=== PATIENT | male | born 1940 | race Hispanic/Latino ===

== ENCOUNTER 2018-02-08 13:37 | Outpatient (CLI) | payer MEDICARE, MEDICAID ==
--- NOTE | 2018-02-08 14:14 | RAD ---
RADIOGRAPH CHEST 2 VIEWS: 02/08/18 HISTORY: 77-year-old male with dyspnea. FINDINGS: There is no air space density, pulmonary edema, pleural effusion, pneumothorax, or cardiomegaly. IMPRESSION: No acute cardiopulmonary findings. jn [] POS: [facility]
== END 2018-02-08 13:38 | disposition home or self-care (01) ==
LOC: RAD 13:37
PROVIDERS: ATTEND Internal Medicine Pulmonary Disease
DX: R06.00 Dyspnea, unspecified (principal)
CPT/HCPCS: 71046

== ENCOUNTER 2018-08-05 20:42 | Inpatient (IN) | payer MEDICARE, MEDICAID ==
--- NOTE | 2018-08-05 21:29 | RAD ---
RADIOGRAPH CHEST 1 VIEW: DATE: 08/05/2018 TIME: 9:10 PM HISTORY: 77-year-old male with cough COMPARISON: 02/08/2018 FINDINGS: Lung volumes are lower on the current study compared to previous, hypoinflated. There is effacement o f the left lateral costophrenic angle. The rest of the lungs are clear. No pulmonary edema or pneumothorax. IMPRESSION: Nonspecific small density at left lateral lung base. Probably subsegmental atelectasis. Less likely t o be pneumonia. However, follow-up with PA and lateral views recommended in a few days.
[2018-08-05 22:08] LABS: #Eosinphils 0.3 thou/uL (0.0-0.7); #Monocytes 0.9 thou/uL (0.11-0.59); #Neutrophils 4.1 thou/uL (1.40-6.50); %Basophils 0.4 % (0.0-1.0); %Eosinophils 3.8 % (0.0-10.0); %Lymphocytes 36.1 % (21.0-51.0); %Monocytes 10.8 % (0.0-10.0); %Neutrophils 48.9 % (42.0-75.0); Mean Corpuscular HGB CONC 32.8 g/dL (32.0-36.0); Mean Corpuscular Hemoglobin 30.4 pg (27.0-31.0); Mean Corpuscular Volume 92.7 fL (78.0-98.0); Mean Platelet Volume 8.1 fL (7.4-10.4); Platelet Count 245 thou/uL (130-400); Red Blood Cell (RBC) Count 3.93 mill/uL (4.70-6.10); White Blood Cell (WBC) Count 8.4 thou/uL (4.8-10.8)
[2018-08-05] MEDS ORDERED: methylPREDNISolone Sod Succ/PF 125 MG/2 ML VIAL ONE (22:32)
[2018-08-05 22:42] LABS: ALT (SGPT) 13 U/L (8-55); AST (SGOT) 20 U/L (5-34); Albumin 3.9 g/dL (3.4-4.8); Alkaline Phosphatase 89 U/L (40-150); Anion Gap 17 mmol/L (10-20); BUN (Urea Nitrogen) 31 mg/dL (8.4-25.7); Bilirubin, Total 0.3 mg/dL (0.2-1.2); Calc. Creatinine Clearance 0 mL/min (70-130); Calcium 8.9 mg/dL (7.8-10.44); Carbon Dioxide 24 mmol/L (23-31); Chloride 98 mmol/L (98-107); Estimated GFR-MDRD 29; Globulin 3.3 g/dL (2.4-3.5); Glucose 255 mg/dL (83-110); Potassium 4.3 mmol/L (3.5-5.1); Protein, Total 7.2 g/dL (5.8-8.1); Sodium 135 mmol/L (136-145)
[2018-08-05] MEDS ORDERED: cefTRIAXone\\ROCEPHIN 2 GM VIAL ONE (23:16)
[2018-08-05] MEDS ORDERED: Azithromycin 500 MG VIAL ONE (23:47)
[2018-08-06 01:18] VITALS: BMI 34.2
[2018-08-06 02:38] LABS: Lactic Acid 2.5 mmol/L (0.5-2.2)
[2018-08-06] MEDS ORDERED: Prevnar 13-Val Conj/PF 0.5 ML SYRINGE IM ONE (09:00)
[2018-08-06] MEDS ORDERED: Dextrose 50% Abboject 50 ML SYRINGE SLOW IVP PRN (10:16)
[2018-08-06] MEDS ORDERED: HumaLOG 300 UNITS/3 ML VIAL SC PRN (10:16)
[2018-08-06] MEDS ORDERED: Dextrose 5% in Water 1,000 ML IV PRN (10:16)
[2018-08-06] MEDS ORDERED: Guaifenesin DM 100-10/5 ML UDCUP PO PRN (10:21)
[2018-08-06] MEDS ORDERED: Furosemide 20 MG TAB PO SCH (10:30)
[2018-08-06] MEDS ORDERED: Potassium Chloride 8 MEQ TAB PO SCH (10:30)
[2018-08-06] MEDS ORDERED: Lisinopril 2.5 MG TAB PO SCH (10:30)
[2018-08-06] MEDS: methylPREDNISolone Sod Succ 40 MG VIAL IVP SCH ×2 (11:12→17:31)
[2018-08-06] MEDS ORDERED: Citalopram 10 MG TAB PO SCH (11:30)
[2018-08-06] MEDS ORDERED: Hydrochlorothiazide 25 MG TAB PO SCH (11:30)
--- NOTE | 2018-08-06 13:46 | CT ---
CT CHEST WITHOUT CONTRAST: Multiple axial tomograms were obtained through the chest without IV enhancement. INDICATION: Cough and congestion. COMPARISON: Correlation made to portable chest 08/05/2018 which showed nonspecific density in the left peripheral l shakir base obscuring the left peripheral lung base obscuring the CP angle. FINDINGS: Lung nam are well aerated. No focal infiltrate or consolidation. There is mild pleural thickenin g seen posteriorly in both lower lung nam. There is interstitial thickening and stranding in both lung bases. Some linear opacity in the region of the lingula is seen peripherally extending to the pleural surface suggesting chronic stranding and/or atelectasis. This would account for the density seen on recent chest film. Findings do not suggest inflammatory infiltrate. Review of the mediastinum showed nonspecific mediastinal lymph nodes. A paratracheal lymph node show s increased density which may represent early calcification. It measures 1.5 cm. Images through the upper abdomen unremarkable. Osseous structures unremarkable. IMPRESSION: There are chronic lung parenchymal and pleural changes as discussed above. No evidence of inflammato ry infiltrate. POS: [facility]
[2018-08-06] MEDS: Pregabalin 50 MG CAP PO SCH ×3 (13:57→21:24)
[2018-08-06] MEDS ORDERED: HumaLOG 300 UNITS/3 ML VIAL SC SCH (15:45)
[2018-08-06] MEDS ORDERED: Insulin Glargine 30 UNITS in Pre-Filled Syringe 1 EACH SC SCH (16:00)
[2018-08-06] MEDS ORDERED: Insulin Regular 300 UNITS/3 ML VIAL SC PRN (21:15)
[2018-08-06] MEDS: Insulin Glargine 55 UNITS in Pre-Filled Syringe 1 EACH SC SCH (21:23)
[2018-08-06] MEDS: HumaLOG 300 UNITS/3 ML VIAL SC PRN (21:23)
[2018-08-06] MEDS: cefTRIAXone\\ROCEPHIN 1 GM in Sodium Chloride 0.9% 100 ML IVPB SCH (21:56)
[2018-08-07] MEDS: methylPREDNISolone Sod Succ 40 MG VIAL IVP SCH ×4 (00:37→17:35)
--- NOTE | 2018-08-07 01:24 | HP ---
CHIEF COMPLAINT: Cough. HISTORY OF PRESENT ILLNESS: This patient is a 77-year-old male who presented via the emergency department complaining of cough. The patient indicated he had a history of asthma and has been coughing for about 8 days, it got worse in the last 4-5 days. Cough is productive of sputum, but the patient is blind and incapable of actually seeing the character of the sputum. He becomes very short of breath with his coughing episodes and reports that he has had several episodes of very brief syncope related to the cough. The episode was more severe on this occasion, so he presented to the emergency department. The patient himself reports that these episodes only last 20-30 seconds before he regains consciousness fully. REVIEW OF SYSTEMS: He denies any significant fever, headache, or vomiting. He does have generalized weakness, some orthopnea, some mild peripheral edema, generalized fatigue. He also admits to some dry mouth, rhinorrhea, dyspnea, decreased appetite, and 10-pound weight loss over a 3-month period. All other systems reviewed. All pertinent positives and negatives noted in the history of present illness. 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 He has type 2 diabetes, hypertension. PAST SURGICAL HISTORY: 1. 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 2. Retinal detachment repair. FAMILY HISTORY: Diabetes, cancer. SOCIAL HISTORY: The patient lives in [place]. Quit smoking 40-50 years ago. Denies alcohol or drugs. He walks with a cane. He is a full code and his is his surrogate decision maker. ALLERGIES: NONE. MEDICATIONS: 1. Lyrica 50 mg p.o. t.i.d. 2. Flovent 110 mcg inhaled daily. 3. Ventolin 90 mcg inhaled p.r.n. 4. Lasix 20 mg daily. 5. Lisinopril 2.5 mg daily. 6. Omeprazole 40 mg daily. 7. Onglyza 5 mg daily. 8. Celexa 10 mg daily. 9. Potassium 8 mEq daily. 10. Hydrochlorothiazide 12.5 mg p.o. p.r.n. swelling. 11. Vitamin D 1000 units p.o. daily. PHYSICAL EXAMINATION: VITAL SIGNS: Temperature is 98, pulse 102, respirations 24, O2 saturation 100% on room air, BP 103/53, repeat was 143/79. GENERAL APPEARANCE: Age-appropriate male, he is in no distress. He has some audible hoarseness of voice. HEENT: Pupils are not significantly reactive. He has no OP lesions. NECK: Supple. Symmetric. HEART: Regular rate and rhythm. No murmurs, gallops, or rubs. LUNGS: Have mild bibasilar rales, but no wheezes. ABDOMEN: Soft, nontender, and nondistended. Positive bowel sounds. No masses. No organomegaly. EXTREMITIES: No significant edema. LABORATORY DATA: White count 8.4, hemoglobin 12.0. Sodium 135, potassium 4.3, chloride 98, CO2 is 24, BUN 31, creatinine 2.2. GFR is 29. LFTs normal. Troponin less than 0.01. BNP 28. Chest x-ray, some nonspecific small density in the left lateral lung base, likely segmental atelectasis, less likely pneumonia. IMPRESSION AND PLAN: 1. Syncope. Syncope appears to be related to the patient's cough which is certainly a known phenomenon. The patient will be maintained on the telemetry monitoring and we will endeavor to suppress the cough. 2. Bronchitis. The patient reports a history of asthma, is on appropriate medications, appears to have a productive cough on top of that consistent with bronchitis. We will obtain CT of the chest to evaluate the basilar rales and the modest abnormality noted on the chest x-ray. Continue antibiotics for now. 3. Chronic kidney disease. The patient's creatinine and GFR appear to be fairly consistent with his baseline. 4. Lactic acidosis. The patient has mild lactic acidosis, may be related to the potential underlying infection. Otherwise, a normal white count. Again, we will obtain a CT scan to help delineate this. 5. Diabetes mellitus with poor control of blood sugars. We will provide sliding scale and Accu-Cheks, and continue to monitor. Job ID: [id number]
[2018-08-07] MEDS: HumaLOG 300 UNITS/3 ML VIAL SC PRN ×4 (06:27→21:41)
[2018-08-07] MEDS ORDERED: Citalopram 10 MG TAB PO SCH (09:00)
[2018-08-07] MEDS ORDERED: Non-Formulary Item 1 EACH (Saxagliptin Hcl [Onglyza] 5 MG) PO SCH (09:00)
[2018-08-07] MEDS ORDERED: Hydrochlorothiazide 25 MG TAB PO SCH (09:00)
[2018-08-07] MEDS ORDERED: Non-Formulary Item 1 EACH (Omeprazole [Omeprazole] 40 MG) PO SCH (09:00)
--- NOTE | 2018-08-07 09:05 | ULT ---
Carotid arterial Doppler ultrasound: 08/07/2018 COMPARISON: None HISTORY: Syncopal episodes TECHNIQUE: Multiplanar grayscale sonographic imaging of the arterial structures of the neck obtained with color flow/spectral analysis FINDINGS: Mild shadowing plaque noted in the proximal and distal right common carotid artery. Antegrade blood flow and normal arterial waveforms are noted within the right carotid and vertebral s ystem. Mild calcified plaque noted in the mid left common carotid artery. There is minimal plaque within the proximal left common carotid artery. Antegrade blood flow and normal arterial waveforms are noted within the carotid and vertebral system on the left. Peak systolic velocity (centimeters per second) within the common carotid artery is 103 on the right and 96 on the left. Peak systolic velocity (centimeters per second) of the internal carotid artery is 86 on the right and 106 on the left. ICA/CCA ratio is 0.8 on the right and 1.4 on the left. IMPRESSION: No hemodynamically significant stenosis within the common carotid artery or internal leon tid artery on either side on the basis of sonographic velocity criteria.
[2018-08-07] MEDS: Lisinopril 5 MG TAB PO SCH (09:21)
[2018-08-07] MEDS: Citalopram 10 MG TAB PO SCH (09:21)
[2018-08-07] MEDS: Pregabalin 50 MG CAP PO SCH ×4 (09:23→21:43)
[2018-08-07] MEDS: Potassium Chloride 8 MEQ TAB PO SCH (09:24)
[2018-08-07] MEDS: Hydrochlorothiazide 25 MG TAB PO SCH (09:24)
[2018-08-07] MEDS: Furosemide 20 MG TAB PO SCH (09:24)
[2018-08-07] MEDS: Alogliptin 25 MG TAB PO SCH (09:25)
[2018-08-07] MEDS: Insulin Glargine 55 UNITS in Pre-Filled Syringe 1 EACH SC SCH (21:42)
--- NOTE | 2018-08-07 21:54 | PDOC.PN ---
- Subjective Encounter Start Date: 08/07/18 Encounter Start Time: 13:00 Feeling some better. Still has some cough. Feels like the nebs have been very helpful for him. - Objective Vital Signs & Weight: Vital Signs (12 hours) Temp Pulse Resp BP Pulse Ox 08/07/18 19:31 110 H 12 08/07/18 18:07 98.3 F 111 H 18 135/70 97 08/07/18 15:47 97.4 F L 108 H 18 108/59 L 93 L 08/07/18 15:07 98 16 08/07/18 11:13 97.3 F L 111 H 19 129/62 94 L 08/07/18 10:43 100 16 Weight Weight 187 lb 3.2 oz I&O: 08/06/18 08/07/18 08/08/18 06:59 06:59 06:59 Intake Total 820 750 Output Total 350 Balance 470 750 Result Diagrams: 08/05/18 21:58 08/05/18 21:58 Additional Labs: Accuchecks 08/07/18 08/07/18 08/07/18 20:43 16:48 10:35 POC Glucose 421 H 384 H 244 H 08/07/18 08/07/18 08/06/18 05:46 03:21 22:33 POC Glucose 249 H 248 H 395 H Phys Exam - Physical Examination Constitutional: NAD Respiratory: no wheezing, no rhonchi, clear to auscultation bilateral Scattered rales. Cardiovascular: RRR, no significant murmur Gastrointestinal: soft, non-tender, no distention, positive bowel sounds Musculoskeletal: no edema, pulses present Neurological: non-focal Psychiatric: normal affect Dx/Plan (1) Cough syncope Code(s): R05 - COUGH Status: Acute (2) Bronchitis Code(s): J40 - BRONCHITIS, NOT SPECIFIED ACUTE OR CHRONIC Status: Acute (3) Diabetes mellitus type 2 in nonobese Code(s): E11.9 - TYPE 2 DIABETES MELLITUS WITHOUT COMPLICATIONS Status: Acute - Plan * Doing better. * Awaiting the echo results given the syncope. * Lungs have scattered rales, but CT shows some chronic findings. No acute infiltrate. * Steroids causing some hyperglycemia. Continue insulin SS.
[2018-08-07] MEDS: cefTRIAXone\\ROCEPHIN 1 GM in Sodium Chloride 0.9% 100 ML IVPB SCH (21:58)
[2018-08-08] MEDS ORDERED: Sodium Chloride 0.9% 500 ML IV SCH ×2 (00:15→10:15)
[2018-08-08] MEDS: HumaLOG 300 UNITS/3 ML VIAL SC PRN (06:05)
[2018-08-08] MEDS: Alogliptin 25 MG TAB PO SCH (08:38)
[2018-08-08] MEDS: Pregabalin 50 MG CAP PO SCH ×2 (08:38→13:14)
[2018-08-08] MEDS: Citalopram 10 MG TAB PO SCH (08:38)
[2018-08-08] MEDS: Potassium Chloride 8 MEQ TAB PO SCH (08:39)
[2018-08-08] MEDS: Lisinopril 5 MG TAB PO SCH (10:46)
[2018-08-08] MEDS: Hydrochlorothiazide 25 MG TAB PO SCH (10:46)
[2018-08-08] MEDS: Furosemide 20 MG TAB PO SCH (10:46)
[2018-08-08 10:52] LABS: #Monocytes 1.2 thou/uL (0.11-0.59); #Neutrophils 14.2 thou/uL (1.40-6.50); %Basophils 0.1 % (0.0-1.0); %Lymphocytes 5.8 % (21.0-51.0); %Monocytes 7.4 % (0.0-10.0); %Neutrophils 86.7 % (42.0-75.0); Mean Corpuscular HGB CONC 34.5 g/dL (32.0-36.0); Mean Corpuscular Hemoglobin 31.3 pg (27.0-31.0); Mean Corpuscular Volume 90.7 fL (78.0-98.0); Mean Platelet Volume 7.8 fL (7.4-10.4); Platelet Count 244 thou/uL (130-400); RBC Distribution Width 11.9 % (11.5-14.5); Red Blood Cell (RBC) Count 3.52 mill/uL (4.70-6.10); White Blood Cell (WBC) Count 16.4 thou/uL (4.8-10.8)
[2018-08-08 11:02] LABS: Hemoglobin A1c 10.2 % (4.0-6.0)
[2018-08-08 11:19] LABS: Anion Gap 20 mmol/L (10-20); BUN (Urea Nitrogen) 44 mg/dL (8.4-25.7); Calc. Creatinine Clearance 39 mL/min (70-130); Calcium 8.8 mg/dL (7.8-10.44); Carbon Dioxide 22 mmol/L (23-31); Chloride 95 mmol/L (98-107); Estimated GFR-MDRD 32; Glucose 186 mg/dL (83-110); Potassium 3.7 mmol/L (3.5-5.1); Sodium 133 mmol/L (136-145)
[2018-08-08 15:57] VITALS: TEMP 97.4
[2018-08-08 17:17] VITALS: BP 129/65
--- NOTE | 2018-08-09 14:49 | DIS ---
DATE OF ADMISSION: 08/07/2018 DATE OF DISCHARGE: 08/08/2018 DISCHARGE DIAGNOSES: 1. Cough related syncope. 2. Bronchitis. 3. Diabetes mellitus. 4. Orthostatic hypotension. 5. 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 HISTORY OF PRESENT ILLNESS: The patient is a 77-year-old male, who presented to the hospital reporting fairly severe cough which had subsequently resulted with several episodes of brief syncope. Initial workup failed to show any significant infiltrate. Chest x-ray shows small density at the left lung base. HOSPITAL COURSE: The patient was admitted. He had carotid Dopplers, which failed to show any significant atherosclerotic disease. Echocardiogram which only revealed some evidence of diastolic dysfunction with preserved ejection fraction at 60% to 65%. He had moderate to severely dilated left atrium. The patient remained on telemetry, had no significant ectopy or arrhythmias noted. A CT scan of the chest revealed some chronic scarring, which describes chronic lung parenchyma and pleural changes without evidence of any acute infiltrate. Therapeutically, the patient was started on nebulizer treatments and antibiotics, as well as steroids. His breathing improved substantially. His cough improved substantially with further episodes of cough related syncope. The patient's blood sugar was running substantially high. I was unclear what his baseline numbers were in talking to his family members and it sounds like they were running pretty high all the time. We did in fact check a hemoglobin A1c, which was 10.2. The patient's insulin was continually adjusted in order to try to achieve better glucose control and that was ultimately accomplished. The patient was felt to be stable for discharge, however in working up his syncope due to orthostatic vitals, he did appear to have some orthostasis. He was given a bolus of IV fluids and was feeling quite well. However, repeat orthostatic vital signs continued to show some evidence of orthostasis. However, when reconfirming the appropriate technique for checking the orthostatic vital signs, it appeared that he did not in fact have the orthostasis at that time and was stable for discharge. PHYSICAL EXAMINATION: VITAL SIGNS: On the day of discharge, his temperature was 97.4. Pulse was 106 to 113, thought to be related to nebulizer treatments. His respirations were 16 to 20, O2 saturation 97% on room air, BP was 121/65. GENERAL: The patient was awake and alert. He does have chronic blindness. HEART: Borderline tachy, but regular. No murmurs. LUNGS: Revealed minimal scattered rales throughout, which was unchanged. ABDOMEN: Benign. EXTREMITIES: With no edema. DISPOSITION: The patient is discharged to home. ACTIVITY: As tolerated. DIET: He will remain on a diabetic diet. DISCHARGE MEDICATIONS: He will have a prescription for DuoNeb 3 mL q.4 hours p.r.n. He will have a prescription for a nebulizer machine. He will be on, 1. Augmentin 875 mg p.o. b.i.d. 2. He will continue citalopram 10 mg daily. 3. HCTZ 12.5 daily. 4. Lisinopril 2.5 daily. 5. Lantus 55 units subcu as directed. 6. Saxagliptin 5 mg daily. 7. Lasix 20 mg daily. 8. Potassium 8 mEq daily. 9. Pregabalin 50 mg q.i.d. 10. Omeprazole 40 mg daily. FOLLOWUP: He will follow up with his primary care provider and return to the hospital should he have any problems prior to that time. TIME SPENT: Total time in discharge activities including [id number] time with the patient was 40 minutes. Job ID: [id number]
== END 2018-08-08 17:50 | disposition home or self-care (01) | DRG 202 ==
LOC: ERS 20:42 → ERHOLD 23:01 → 2SW 08-06 01:11 → OBSVTOIN 08-07 21:48
PROVIDERS: ADMIT Hospitalist; ATTEND Hospitalist
DX: J20.9 Acute bronchitis, unspecified (principal); E87.2 Acidosis; J45.909 Unspecified asthma, uncomplicated; H54.7 Unspecified visual loss; E11.22 Type 2 diabetes mellitus with diabetic chronic kidney disease; I12.9 Hypertensive chronic kidney disease with stage 1 through stage 4 chronic kidney disease, or unspecified chronic kidney disease; N18.9 Chronic kidney disease, unspecified; R73.9 Hyperglycemia, unspecified; T38.0X5A Adverse effect of glucocorticoids and synthetic analogues, initial encounter; Z89.021 Acquired absence of right finger(s); Z79.84 Long term (current) use of oral hypoglycemic drugs; Z87.891 Personal history of nicotine dependence; Z79.899 Other long term (current) drug therapy
CPT/HCPCS: 36415; 36416; 71045; 71250; 80048; 80053; 83036; 83605; 83880; 84484; 85025; 87040; 90471; 90670; 93005; 93306; 93880; 94640; 94760; 96365; 96367; 96375; G0009; J0456; J0696; J1825; J2920; J2930; J3490; J7620

== ENCOUNTER 2021-09-08 18:56 | Inpatient (IN) | payer MEDICARE, MEDICAID ==
[2021-09-08] MEDS ORDERED: Senokot S 8.6-50 MG TAB PO PRN (22:05)
[2021-09-08] MEDS ORDERED: Ondansetron PF 4 MG/2 ML Vial IVP PRN (22:05)
[2021-09-08] MEDS ORDERED: hydrOXYzine 25 MG TAB PO PRN (22:25)
[2021-09-08] MEDS ORDERED: Dextrose 5% in Water 1,000 ML IV PRN (22:26)
[2021-09-08] MEDS ORDERED: Dextrose 50% Abboject 50 ML SYRINGE SLOW IVP PRN (22:26)
[2021-09-08] MEDS ORDERED: Atorvastatin Calcium 20 MG TAB PO SCH (23:00)
[2021-09-08] MEDS ORDERED: Pantoprazole 40 MG VIAL IVP SCH (23:00)
[2021-09-08] MEDS ORDERED: Heparin 5,000 UNITS/ML VIAL SC SCH (23:00)
[2021-09-08 23:19] LABS: Troponin I 0.098 ng/mL (< 0.028)
[2021-09-08] MEDS: Sodium Chloride 0.9% 1,000 ML IV SCH (23:24)
[2021-09-08] MEDS: Piperacillin/Tazobactam 3.375 GM in Sodium Chloride 0.9% 100 ML IVPB SCH (23:25)
[2021-09-08] MEDS: HumaLOG 300 UNITS/3 ML VIAL SC PRN (23:28)
[2021-09-08] MEDS: Melatonin 3 MG TAB PO PRN (23:28)
[2021-09-09 05:09] LABS: Hemoglobin 8.3 g/dL (14.0-18.0); Mean Corpuscular HGB CONC 32.9 g/dL (32.0-36.0); Mean Corpuscular Hemoglobin 30.5 pg (27.0-31.0); Mean Corpuscular Volume 92.8 fL (78.0-98.0); Mean Platelet Volume 7.2 fL (7.4-10.4); Platelet Count 213 thou/uL (130-400); Red Blood Cell (RBC) Count 2.72 mill/uL (4.70-6.10); White Blood Cell (WBC) Count 16.6 thou/uL (4.8-10.8)
[2021-09-09 05:10] LABS: Band 13 % (5-11); Lymphocytes 3 % (21-51); MDiff Complete? YES; Monocytes 11 % (0-10); Neutrophil 73 % (42-75); Platelet Morphology Comment Appears Adequate
[2021-09-09 05:34] LABS: ALT (SGPT) 9 U/L (8-55); AST (SGOT) 13 U/L (5-34); Albumin 2.4 g/dL (3.4-4.8); Alkaline Phosphatase 80 U/L (40-110); Anion Gap 15 mmol/L (10-20); BUN (Urea Nitrogen) 34 mg/dL (8.4-25.7); Bilirubin, Total 0.5 mg/dL (0.2-1.2); Calc. Creatinine Clearance 31 mL/min (70-130); Calcium 8.3 mg/dL (7.8-10.44); Carbon Dioxide 21 mmol/L (23-31); Chloride 95 mmol/L (98-107); Estimated GFR 37; Glucose 160 mg/dL (83-110); Potassium 4.4 mmol/L (3.5-5.1); Protein, Total 5.4 g/dL (5.8-8.1); Sodium 127 mmol/L (136-145)
[2021-09-09] MEDS: Piperacillin/Tazobactam 3.375 GM in Sodium Chloride 0.9% 100 ML IVPB SCH (07:27)
[2021-09-09] MEDS: Heparin 5,000 UNITS/ML VIAL SC SCH ×2 (09:11→20:38)
[2021-09-09] MEDS: Pantoprazole 40 MG VIAL IVP SCH (09:13)
[2021-09-09] MEDS: Sodium Chloride 0.9% 1,000 ML IV SCH ×2 (09:24→17:26)
[2021-09-09] MEDS ORDERED: Meropenem 1 GM in Sodium Chloride 0.9% 100 ML IVPB SCH (13:00)
[2021-09-09 13:02] LABS: Bilirubin Negative (Negative); Blood, Urine 3+ (Negative); Clarity Turbid (Clear); Glucose, Urine (Dipstick) 70 mg/dL (Negative); Ketone, Urine Negative (Negative); Leukocyte 500 Leu/uL (Negative); Nitrite Negative (Negative); Protein, Urine (Dipstick) 30 mg/dL (Neg-Trace); Specific Gravity, Urine 1.011 (1.002-1.036); Urobilinogen Normal mg/dL (Less than 2); Yeast-Budding 2+ HPF (None Seen); pH, Urine 5.5 (5.0-9.0)
[2021-09-09] MEDS: Acetaminophen 325 MG TAB PO PRN ×2 (13:33→20:38)
[2021-09-09] MEDS: Triple Antibiotic Oint 1 GM Packet TOP SCH ×3 (13:34→20:38)
[2021-09-09 13:40] LABS: Bacteria/HPF 1+ HPF (None Seen)
[2021-09-09 13:41] LABS: Renal Epithelial 0-3 HPF (None Seen); Squamous Epithelial 0-3 HPF (0-3); Transitional Epithelial 0-3 HPF (None Seen)
[2021-09-09 14:43] LABS: Sodium 123 mmol/L (136-145)
[2021-09-09] MEDS: Carvedilol 3.125 MG TAB PO SCH (17:20)
[2021-09-09] MEDS: HumaLOG 300 UNITS/3 ML VIAL SC PRN (18:52)
[2021-09-09] MEDS: Atorvastatin Calcium 20 MG TAB PO SCH (20:37)
[2021-09-09] MEDS: Meropenem 1 GM in Sodium Chloride 0.9% 100 ML IVPB SCH (20:37)
[2021-09-10] MEDS: Acetaminophen 325 MG TAB PO PRN ×2 (00:42→08:07)
[2021-09-10] MEDS: Sodium Chloride 0.9% 1,000 ML IV SCH (06:16)
[2021-09-10] MEDS: Triple Antibiotic Oint 1 GM Packet TOP SCH ×4 (08:08→20:34)
[2021-09-10] MEDS: Heparin 5,000 UNITS/ML VIAL SC SCH ×2 (08:08→20:34)
[2021-09-10] MEDS: Carvedilol 3.125 MG TAB PO SCH ×2 (08:08→17:30)
[2021-09-10] MEDS: Pantoprazole 40 MG VIAL IVP SCH (08:08)
[2021-09-10 09:11] LABS: Anion Gap 15 mmol/L (10-20); BUN (Urea Nitrogen) 25 mg/dL (8.4-25.7); Calc. Creatinine Clearance 35 mL/min (70-130); Carbon Dioxide 18 mmol/L (23-31); Chloride 99 mmol/L (98-107); Estimated GFR 41; Glucose 159 mg/dL (83-110); Potassium 3.9 mmol/L (3.5-5.1); Sodium 128 mmol/L (136-145)
[2021-09-10 09:20] LABS: Hemoglobin 9.8 g/dL (14.0-18.0); Mean Corpuscular HGB CONC 32.6 g/dL (32.0-36.0); Mean Corpuscular Hemoglobin 30.7 pg (27.0-31.0); Mean Platelet Volume 7.7 fL (7.4-10.4); Platelet Count 242 thou/uL (130-400); RBC Distribution Width 12.1 % (11.5-14.5); Red Blood Cell (RBC) Count 3.19 mill/uL (4.70-6.10)
[2021-09-10] MEDS: Meropenem 1 GM in Sodium Chloride 0.9% 100 ML IVPB SCH ×2 (09:25→20:33)
[2021-09-10 10:33] LABS: Band 15 % (5-11); Eosinophils 3 % (0-10); Lymphocytes 9 % (21-51); MDiff Complete? YES; Monocytes 10 % (0-10); Neutrophil 63 % (42-75); Platelet Morphology Comment Appears Adequate; Polychromasia SLIGHT = 2-3 cells (100X) (0-2/hpf)
[2021-09-10] MEDS: oxyCODONE 5 MG TAB PO PRN (15:02)
[2021-09-10] MEDS: Acetaminophen 500 MG TAB PO SCH ×2 (15:02→20:34)
[2021-09-10 16:26] LABS: Sodium 129 mmol/L (136-145)
[2021-09-10] MEDS: HumaLOG 300 UNITS/3 ML VIAL SC PRN (17:59)
[2021-09-10 20:30] LABS: Sodium 128 mmol/L (136-145)
[2021-09-10] MEDS: Atorvastatin Calcium 20 MG TAB PO SCH (20:34)
[2021-09-11 04:43] LABS: Anion Gap 11 mmol/L (10-20); BUN (Urea Nitrogen) 23 mg/dL (8.4-25.7); Calc. Creatinine Clearance 39 mL/min (70-130); Calcium 7.3 mg/dL (7.8-10.44); Carbon Dioxide 22 mmol/L (23-31); Chloride 98 mmol/L (98-107); Estimated GFR 47; Glucose 215 mg/dL (83-110); Potassium 3.9 mmol/L (3.5-5.1); Sodium 127 mmol/L (136-145)
[2021-09-11 04:49] LABS: #Eosinphils 0.2 thou/uL (0.0-0.7); #Lymphocytes 1.2 thou/uL (1.20-3.40); #Monocytes 1.5 thou/uL (0.11-0.59); #Neutrophils 7.3 thou/uL (1.40-6.50); %Basophils 0.4 % (0.0-1.0); %Eosinophils 1.9 % (0.0-10.0); %Lymphocytes 11.3 % (21.0-51.0); %Monocytes 14.7 % (0.0-10.0); %Neutrophils 71.7 % (42.0-75.0); Mean Corpuscular HGB CONC 33.5 g/dL (32.0-36.0); Mean Corpuscular Volume 92.6 fL (78.0-98.0); Mean Platelet Volume 7.5 fL (7.4-10.4); Platelet Count 223 thou/uL (130-400); Red Blood Cell (RBC) Count 2.59 mill/uL (4.70-6.10); White Blood Cell (WBC) Count 10.2 thou/uL (4.8-10.8)
[2021-09-11] MEDS: HumaLOG 300 UNITS/3 ML VIAL SC PRN ×3 (06:00→20:49)
[2021-09-11] MEDS: Pantoprazole 40 MG VIAL IVP SCH (08:52)
[2021-09-11] MEDS: Triple Antibiotic Oint 1 GM Packet TOP SCH ×4 (08:52→20:50)
[2021-09-11] MEDS: Heparin 5,000 UNITS/ML VIAL SC SCH ×2 (08:52→20:47)
[2021-09-11] MEDS: Meropenem 1 GM in Sodium Chloride 0.9% 100 ML IVPB SCH ×2 (08:52→20:50)
[2021-09-11] MEDS: Acetaminophen 500 MG TAB PO SCH ×3 (08:53→20:49)
[2021-09-11] MEDS: Carvedilol 3.125 MG TAB PO SCH ×2 (08:53→16:21)
[2021-09-11] MEDS: Atorvastatin Calcium 20 MG TAB PO SCH (20:47)
[2021-09-11] MEDS: oxyCODONE 5 MG TAB PO PRN (20:47)
[2021-09-12 04:42] LABS: #Eosinphils 0.2 thou/uL (0.0-0.7); #Lymphocytes 1.7 thou/uL (1.20-3.40); #Monocytes 1.2 thou/uL (0.11-0.59); #Neutrophils 8.3 thou/uL (1.40-6.50); %Basophils 0.4 % (0.0-1.0); %Eosinophils 1.6 % (0.0-10.0); %Lymphocytes 14.5 % (21.0-51.0); %Monocytes 10.8 % (0.0-10.0); %Neutrophils 72.7 % (42.0-75.0); Hemoglobin 9.4 g/dL (14.0-18.0); Mean Corpuscular HGB CONC 33.8 g/dL (32.0-36.0); Mean Corpuscular Hemoglobin 31.5 pg (27.0-31.0); Mean Corpuscular Volume 93.1 fL (78.0-98.0); Mean Platelet Volume 7.3 fL (7.4-10.4); Platelet Count 293 thou/uL (130-400); White Blood Cell (WBC) Count 11.5 thou/uL (4.8-10.8)
[2021-09-12 05:07] LABS: Anion Gap 13 mmol/L (10-20); BUN (Urea Nitrogen) 20 mg/dL (8.4-25.7); Calc. Creatinine Clearance 44 mL/min (70-130); Calcium 7.8 mg/dL (7.8-10.44); Chloride 98 mmol/L (98-107); Estimated GFR 51; Glucose 167 mg/dL (83-110); Potassium 3.9 mmol/L (3.5-5.1); Sodium 129 mmol/L (136-145)
[2021-09-12 05:43] LABS: Carbon Dioxide 22 mmol/L (23-31)
[2021-09-12] MEDS: hydrALAZINE 20 MG/ML VIAL SLOW IVP PRN (06:24)
[2021-09-12] MEDS: HumaLOG 300 UNITS/3 ML VIAL SC PRN ×2 (06:31→18:02)
[2021-09-12] MEDS: Acetaminophen 500 MG TAB PO SCH ×3 (09:14→21:45)
[2021-09-12] MEDS: Meropenem 1 GM in Sodium Chloride 0.9% 100 ML IVPB SCH ×2 (09:14→21:46)
[2021-09-12] MEDS: Triple Antibiotic Oint 1 GM Packet TOP SCH ×4 (09:15→21:46)
[2021-09-12] MEDS: Heparin 5,000 UNITS/ML VIAL SC SCH ×2 (09:15→21:45)
[2021-09-12] MEDS: Carvedilol 3.125 MG TAB PO SCH ×2 (09:15→15:53)
[2021-09-12] MEDS: Pantoprazole 40 MG VIAL IVP SCH (09:15)
[2021-09-12] MEDS: oxyCODONE 5 MG TAB PO PRN (18:01)
[2021-09-12] MEDS: Atorvastatin Calcium 20 MG TAB PO SCH (21:45)
[2021-09-13 04:42] LABS: #Eosinphils 0.2 thou/uL (0.0-0.7); #Lymphocytes 1.7 thou/uL (1.20-3.40); #Monocytes 1.1 thou/uL (0.11-0.59); #Neutrophils 7.4 thou/uL (1.40-6.50); %Basophils 0.2 % (0.0-1.0); %Eosinophils 2.3 % (0.0-10.0); %Lymphocytes 16.2 % (21.0-51.0); %Monocytes 10.9 % (0.0-10.0); %Neutrophils 70.4 % (42.0-75.0); Hemoglobin 8.3 g/dL (14.0-18.0); Mean Corpuscular HGB CONC 32.9 g/dL (32.0-36.0); Mean Corpuscular Hemoglobin 30.7 pg (27.0-31.0); Mean Corpuscular Volume 93.4 fL (78.0-98.0); Mean Platelet Volume 6.8 fL (7.4-10.4); Platelet Count 289 thou/uL (130-400); RBC Distribution Width 12.1 % (11.5-14.5); Red Blood Cell (RBC) Count 2.71 mill/uL (4.70-6.10); White Blood Cell (WBC) Count 10.5 thou/uL (4.8-10.8)
[2021-09-13 05:03] LABS: Anion Gap 13 mmol/L (10-20); BUN (Urea Nitrogen) 23 mg/dL (8.4-25.7); Calc. Creatinine Clearance 43 mL/min (70-130); Calcium 7.8 mg/dL (7.8-10.44); Carbon Dioxide 23 mmol/L (23-31); Chloride 99 mmol/L (98-107); Estimated GFR 50; Glucose 217 mg/dL (83-110); Potassium 3.7 mmol/L (3.5-5.1); Sodium 131 mmol/L (136-145)
[2021-09-13] MEDS: HumaLOG 300 UNITS/3 ML VIAL SC PRN ×2 (05:48→18:30)
[2021-09-13] MEDS: Acetaminophen 500 MG TAB PO SCH ×3 (09:53→20:58)
[2021-09-13] MEDS: Carvedilol 3.125 MG TAB PO SCH ×2 (09:54→17:17)
[2021-09-13] MEDS: Heparin 5,000 UNITS/ML VIAL SC SCH ×2 (09:54→20:58)
[2021-09-13] MEDS: Pantoprazole 40 MG VIAL IVP SCH (09:55)
[2021-09-13] MEDS: Triple Antibiotic Oint 1 GM Packet TOP SCH ×4 (09:55→20:59)
[2021-09-13] MEDS: Meropenem 1 GM in Sodium Chloride 0.9% 100 ML IVPB SCH ×2 (10:30→20:59)
[2021-09-13] MEDS: oxyCODONE 5 MG TAB PO PRN (17:16)
[2021-09-13] MEDS: Atorvastatin Calcium 20 MG TAB PO SCH (20:58)
[2021-09-14 04:29] LABS: #Eosinphils 0.3 thou/uL (0.0-0.7); #Lymphocytes 2.4 thou/uL (1.20-3.40); #Neutrophils 6.8 thou/uL (1.40-6.50); %Basophils 0.3 % (0.0-1.0); %Eosinophils 2.5 % (0.0-10.0); %Monocytes 9.7 % (0.0-10.0); %Neutrophils 64.5 % (42.0-75.0); Hemoglobin 8.8 g/dL (14.0-18.0); Mean Corpuscular HGB CONC 32.3 g/dL (32.0-36.0); Mean Corpuscular Hemoglobin 31.2 pg (27.0-31.0); Mean Corpuscular Volume 96.5 fL (78.0-98.0); Mean Platelet Volume 7.1 fL (7.4-10.4); Platelet Count 333 thou/uL (130-400); RBC Distribution Width 12.2 % (11.5-14.5); Red Blood Cell (RBC) Count 2.82 mill/uL (4.70-6.10); White Blood Cell (WBC) Count 10.5 thou/uL (4.8-10.8)
[2021-09-14 04:51] LABS: Anion Gap 14 mmol/L (10-20); BUN (Urea Nitrogen) 19 mg/dL (8.4-25.7); Calc. Creatinine Clearance 46 mL/min (70-130); Calcium 7.9 mg/dL (7.8-10.44); Carbon Dioxide 21 mmol/L (23-31); Chloride 101 mmol/L (98-107); Estimated GFR 56; Glucose 211 mg/dL (83-110); Potassium 3.9 mmol/L (3.5-5.1); Sodium 132 mmol/L (136-145)
[2021-09-14] MEDS: HumaLOG 300 UNITS/3 ML VIAL SC PRN ×2 (05:50→21:06)
[2021-09-14] MEDS: Meropenem 1 GM in Sodium Chloride 0.9% 100 ML IVPB SCH ×2 (08:52→21:00)
[2021-09-14] MEDS: Carvedilol 3.125 MG TAB PO SCH ×2 (08:52→16:45)
[2021-09-14] MEDS: Acetaminophen 500 MG TAB PO SCH ×3 (08:52→21:00)
[2021-09-14] MEDS: Heparin 5,000 UNITS/ML VIAL SC SCH ×2 (08:53→21:00)
[2021-09-14] MEDS: Triple Antibiotic Oint 1 GM Packet TOP SCH ×4 (08:53→21:00)
[2021-09-14] MEDS: Pantoprazole 40 MG VIAL IVP SCH (08:53)
[2021-09-14] MEDS: hydrALAZINE 20 MG/ML VIAL SLOW IVP PRN (11:50)
[2021-09-14] MEDS: Atorvastatin Calcium 20 MG TAB PO SCH (21:00)
[2021-09-14] MEDS: oxyCODONE 5 MG TAB PO PRN (21:01)
[2021-09-15] MEDS: oxyCODONE 5 MG TAB PO PRN (00:54)
[2021-09-15 06:49] LABS: Anion Gap 15 mmol/L (10-20); BUN (Urea Nitrogen) 16 mg/dL (8.4-25.7); Calc. Creatinine Clearance 49 mL/min (70-130); Calcium 7.8 mg/dL (7.8-10.44); Carbon Dioxide 22 mmol/L (23-31); Chloride 97 mmol/L (98-107); Estimated GFR 61; Glucose 156 mg/dL (83-110); Hemoglobin 8.6 g/dL (14.0-18.0); Mean Corpuscular Hemoglobin 29.8 pg (27.0-31.0); Mean Corpuscular Volume 93.2 fL (78.0-98.0); Mean Platelet Volume 7.1 fL (7.4-10.4); Platelet Count 388 thou/uL (130-400); Potassium 3.6 mmol/L (3.5-5.1); RBC Distribution Width 12.2 % (11.5-14.5); Red Blood Cell (RBC) Count 2.88 mill/uL (4.70-6.10); Sodium 130 mmol/L (136-145); White Blood Cell (WBC) Count 11.2 thou/uL (4.8-10.8)
[2021-09-15 08:25] LABS: Band 11 % (5-11); Eosinophils 9 % (0-10); Lymphocytes 18 % (21-51); MDiff Complete? YES; Monocytes 7 % (0-10); Neutrophil 55 % (42-75); Platelet Morphology Comment Appears Adequate; Polychromasia SLIGHT = 2-3 cells (100X) (0-2/hpf)
[2021-09-15] MEDS: Pantoprazole 40 MG VIAL IVP SCH (09:33)
[2021-09-15] MEDS: Triple Antibiotic Oint 1 GM Packet TOP SCH ×4 (09:33→21:11)
[2021-09-15] MEDS: Sodium Chloride 0.9% (PF) 10 ML VIAL FS PRN (09:33)
[2021-09-15] MEDS: Heparin 5,000 UNITS/ML VIAL SC SCH ×2 (09:34→21:12)
[2021-09-15] MEDS: Carvedilol 3.125 MG TAB PO SCH ×2 (09:34→17:57)
[2021-09-15] MEDS: Meropenem 1 GM in Sodium Chloride 0.9% 100 ML IVPB SCH ×2 (09:34→21:11)
[2021-09-15] MEDS: HumaLOG 300 UNITS/3 ML VIAL SC PRN ×2 (12:56→17:56)
[2021-09-15] MEDS: Acetaminophen 500 MG TAB PO SCH ×2 (13:27→14:21)
[2021-09-15] MEDS: Lisinopril 10 MG TAB PO SCH (21:11)
[2021-09-15] MEDS: Atorvastatin Calcium 20 MG TAB PO SCH (21:12)
[2021-09-15] MEDS: HYDROcodone/Acetaminophen 10/325 mg Tablet PO PRN (21:42)
[2021-09-16] MEDS: Meropenem 1 GM in Sodium Chloride 0.9% 100 ML IVPB SCH ×2 (09:02→20:18)
[2021-09-16] MEDS: HYDROcodone/Acetaminophen 10/325 mg Tablet PO PRN ×2 (09:03→16:07)
[2021-09-16] MEDS: Lisinopril 10 MG TAB PO SCH ×2 (09:04→20:17)
[2021-09-16] MEDS: Heparin 5,000 UNITS/ML VIAL SC SCH ×2 (09:04→20:17)
[2021-09-16] MEDS: Carvedilol 3.125 MG TAB PO SCH ×2 (09:05→16:09)
[2021-09-16] MEDS: Sodium Chloride 0.9% (PF) 10 ML VIAL FS PRN (09:05)
[2021-09-16] MEDS: Triple Antibiotic Oint 1 GM Packet TOP SCH ×4 (09:05→20:17)
[2021-09-16] MEDS: Pantoprazole 40 MG VIAL IVP SCH (09:05)
[2021-09-16] MEDS: HumaLOG 300 UNITS/3 ML VIAL SC PRN (16:48)
[2021-09-16] MEDS: Atorvastatin Calcium 20 MG TAB PO SCH (20:17)
[2021-09-16] MEDS: Melatonin 3 MG TAB PO PRN (20:17)
[2021-09-16] MEDS: hydrALAZINE 20 MG/ML VIAL SLOW IVP PRN (20:22)
[2021-09-16] MEDS ORDERED: Ketorolac Tromethamine 30 MG/ML VIAL IVP SCH (20:30)
[2021-09-17 04:15] LABS: Hemoglobin 8.8 g/dL (14.0-18.0); Mean Corpuscular HGB CONC 33.2 g/dL (32.0-36.0); Mean Corpuscular Hemoglobin 31.5 pg (27.0-31.0); Mean Corpuscular Volume 94.9 fL (78.0-98.0); Mean Platelet Volume 6.4 fL (7.4-10.4); Platelet Count 376 thou/uL (130-400); RBC Distribution Width 12.6 % (11.5-14.5); White Blood Cell (WBC) Count 10.8 thou/uL (4.8-10.8)
[2021-09-17 04:28] LABS: Anion Gap 14 mmol/L (10-20); BUN (Urea Nitrogen) 20 mg/dL (8.4-25.7); Calc. Creatinine Clearance 44 mL/min (70-130); Carbon Dioxide 23 mmol/L (23-31); Chloride 97 mmol/L (98-107); Estimated GFR 53; Glucose 166 mg/dL (83-110); Potassium 4.1 mmol/L (3.5-5.1); Sodium 130 mmol/L (136-145)
[2021-09-17] MEDS: Lisinopril 10 MG TAB PO SCH ×3 (10:39→22:25)
[2021-09-17] MEDS: Meropenem 1 GM in Sodium Chloride 0.9% 100 ML IVPB SCH ×2 (10:40→22:24)
[2021-09-17] MEDS: Pantoprazole 40 MG VIAL IVP SCH (10:41)
[2021-09-17] MEDS: Triple Antibiotic Oint 1 GM Packet TOP SCH ×4 (10:41→22:26)
[2021-09-17] MEDS: Carvedilol 3.125 MG TAB PO SCH ×2 (10:44→16:49)
[2021-09-17] MEDS ORDERED: Fentanyl 100 MCG/2 ML VIAL ONE (13:22)
[2021-09-17] MEDS ORDERED: Sodium Bicarbonate 2.5 MEQ/5 ML VIAL ONE (13:22)
[2021-09-17] MEDS: Atorvastatin Calcium 20 MG TAB PO SCH (22:24)
[2021-09-17] MEDS: Famotidine 20 MG TAB PO SCH (22:25)
[2021-09-17] MEDS: HYDROcodone/Acetaminophen 10/325 mg Tablet PO PRN (22:26)
[2021-09-17] MEDS: Heparin 5,000 UNITS/ML VIAL SC SCH (22:27)
[2021-09-17] MEDS: HumaLOG 300 UNITS/3 ML VIAL SC PRN (23:55)
[2021-09-18 04:44] LABS: #Eosinphils 0.1 thou/uL (0.0-0.7); #Lymphocytes 2.1 thou/uL (1.20-3.40); #Monocytes 1.1 thou/uL (0.11-0.59); #Neutrophils 9.7 thou/uL (1.40-6.50); %Basophils 0.1 % (0.0-1.0); %Eosinophils 0.5 % (0.0-10.0); %Lymphocytes 16.1 % (21.0-51.0); %Monocytes 8.2 % (0.0-10.0); %Neutrophils 75.1 % (42.0-75.0); Hemoglobin 9.7 g/dL (14.0-18.0); Mean Corpuscular HGB CONC 33.2 g/dL (32.0-36.0); Mean Corpuscular Hemoglobin 31.7 pg (27.0-31.0); Mean Corpuscular Volume 95.6 fL (78.0-98.0); Mean Platelet Volume 6.7 fL (7.4-10.4); Platelet Count 452 thou/uL (130-400); RBC Distribution Width 12.6 % (11.5-14.5); Red Blood Cell (RBC) Count 3.06 mill/uL (4.70-6.10); White Blood Cell (WBC) Count 12.8 thou/uL (4.8-10.8)
[2021-09-18 04:59] LABS: Anion Gap 17 mmol/L (10-20); BUN (Urea Nitrogen) 19 mg/dL (8.4-25.7); Calc. Creatinine Clearance 45 mL/min (70-130); Calcium 8.5 mg/dL (7.8-10.44); Carbon Dioxide 21 mmol/L (23-31); Chloride 98 mmol/L (98-107); Estimated GFR 56; Glucose 177 mg/dL (83-110); Potassium 4.2 mmol/L (3.5-5.1); Sodium 132 mmol/L (136-145)
[2021-09-18] MEDS: Meropenem 1 GM in Sodium Chloride 0.9% 100 ML IVPB SCH ×2 (09:57→21:40)
[2021-09-18] MEDS: Lisinopril 10 MG TAB PO SCH (09:57)
[2021-09-18] MEDS: Carvedilol 3.125 MG TAB PO SCH ×2 (09:57→17:38)
[2021-09-18] MEDS: Triple Antibiotic Oint 1 GM Packet TOP SCH ×4 (09:58→21:41)
[2021-09-18] MEDS: Citalopram 20 MG TAB PO SCH (09:58)
[2021-09-18] MEDS: Heparin 5,000 UNITS/ML VIAL SC SCH ×2 (09:58→21:40)
[2021-09-18] MEDS ORDERED: hydrALAZINE 20 MG/ML VIAL SLOW IVP PRN (13:26)
[2021-09-18 13:40] VITALS: BMI 24.7
[2021-09-18] MEDS: Acetaminophen 500 MG TAB PO PRN (21:40)
[2021-09-18] MEDS: Famotidine 20 MG TAB PO SCH (21:40)
[2021-09-18] MEDS: Atorvastatin Calcium 20 MG TAB PO SCH (21:40)
[2021-09-18] MEDS: HumaLOG 300 UNITS/3 ML VIAL SC PRN (21:42)
[2021-09-19] MEDS: Citalopram 20 MG TAB PO SCH (09:40)
[2021-09-19] MEDS: Lisinopril 10 MG TAB PO SCH (09:41)
[2021-09-19] MEDS: Carvedilol 3.125 MG TAB PO SCH ×2 (09:41→16:38)
[2021-09-19] MEDS: Triple Antibiotic Oint 1 GM Packet TOP SCH ×4 (09:42→22:24)
[2021-09-19] MEDS: Meropenem 1 GM in Sodium Chloride 0.9% 100 ML IVPB SCH ×2 (09:42→22:23)
[2021-09-19] MEDS: Heparin 5,000 UNITS/ML VIAL SC SCH ×2 (09:49→22:23)
[2021-09-19] MEDS: Acetaminophen 500 MG TAB PO PRN ×2 (09:49→16:38)
[2021-09-19] MEDS ORDERED: Insulin Glargine 30 UNITS/0.3 ML VIAL SC SCH (11:45)
[2021-09-19] MEDS ORDERED: Nystatin Powder 15 GM BOT TOP PRN (11:50)
[2021-09-19] MEDS: HumaLOG 300 UNITS/3 ML VIAL SC PRN ×2 (12:31→22:23)
[2021-09-19] MEDS: metFORMIN 500 MG TAB PO SCH (16:38)
[2021-09-19] MEDS: Famotidine 20 MG TAB PO SCH (22:22)
[2021-09-19] MEDS: Atorvastatin Calcium 20 MG TAB PO SCH (22:22)
[2021-09-20] MEDS: Heparin 5,000 UNITS/ML VIAL SC SCH (08:54)
[2021-09-20] MEDS: Citalopram 20 MG TAB PO SCH (08:55)
[2021-09-20] MEDS: metFORMIN 500 MG TAB PO SCH (08:55)
[2021-09-20] MEDS: Carvedilol 3.125 MG TAB PO SCH (08:55)
[2021-09-20] MEDS: Lisinopril 10 MG TAB PO SCH (08:55)
[2021-09-20] MEDS: Triple Antibiotic Oint 1 GM Packet TOP SCH ×2 (08:56→13:49)
[2021-09-20] MEDS: Meropenem 1 GM in Sodium Chloride 0.9% 100 ML IVPB SCH (10:06)
[2021-09-20 12:11] VITALS: BP 151/70; TEMP 97.3
== END 2021-09-20 16:27 | disposition home health service (06) | DRG 871 ==
LOC: 2NO 18:57
PROVIDERS: ADMIT Family Medicine; ATTEND Student in an Organized Health Care Education/Training Program
PROC: 3E03329 Introduction of Other Anti-infective into Peripheral Vein, Percutaneous Approach (ICD-10-PCS; 2021-09-08)
PROC: 02HV33Z Insertion of Infusion Device into Superior Vena Cava, Percutaneous Approach (ICD-10-PCS; principal; 2021-09-14)
PROC: B548ZZA Ultrasonography of Superior Vena Cava, Guidance (ICD-10-PCS; 2021-09-14)
PROC: 0T9B70Z Drainage of Bladder with Drainage Device, Via Natural or Artificial Opening (ICD-10-PCS; 2021-09-17)
DX: A41.51 Sepsis due to Escherichia coli [E. coli] (principal); G93.41 Metabolic encephalopathy; N39.0 Urinary tract infection, site not specified; E87.1 Hypo-osmolality and hyponatremia; I50.32 Chronic diastolic (congestive) heart failure; I13.0 Hypertensive heart and chronic kidney disease with heart failure and stage 1 through stage 4 chronic kidney disease, or unspecified chronic kidney disease; N17.9 Acute kidney failure, unspecified; E87.2 Acidosis; Z16.24 Resistance to multiple antibiotics; Z20.822 Contact with and (suspected) exposure to COVID-19; E78.5 Hyperlipidemia, unspecified; E86.9 Volume depletion, unspecified; E11.65 Type 2 diabetes mellitus with hyperglycemia; F32.A Depression, unspecified; N18.30 Chronic kidney disease, stage 3 unspecified; E11.22 Type 2 diabetes mellitus with diabetic chronic kidney disease; N47.1 Phimosis; H54.8 Legal blindness, as defined in USA; D63.1 Anemia in chronic kidney disease; I95.1 Orthostatic hypotension; Z79.84 Long term (current) use of oral hypoglycemic drugs; Z79.4 Long term (current) use of insulin; Z79.51 Long term (current) use of inhaled steroids; Z89.421 Acquired absence of other right toe(s); Z87.891 Personal history of nicotine dependence; Z86.16 Personal history of COVID-19
CPT/HCPCS: 36415; 36416; 36569; 51102; 77002; 80048; 80053; 81003; 83930; 83935; 84300; 85025; 85027; 87077; 87086; 97139; C1751; C2627; C9113; J0360; J1644; J1815; J1885; J2185; J2543; J3010; J3490; J7050

== ENCOUNTER 2021-09-24 12:05 | Emergency (ER) | payer MEDICARE, MEDICAID | END 2021-09-24 15:00 | disposition home or self-care (01) | LOC: ERS 12:05 | DX: T82.898A Other specified complication of vascular prosthetic devices, implants and grafts, initial encounter (principal); E11.9 Type 2 diabetes mellitus without complications; I10 Essential (primary) hypertension; E78.5 Hyperlipidemia, unspecified; Z87.891 Personal history of nicotine dependence; Z79.84 Long term (current) use of oral hypoglycemic drugs; Z79.4 Long term (current) use of insulin; Z79.899 Other long term (current) drug therapy | CPT/HCPCS: 36569; 93005; 99283; C1751 ==

== ENCOUNTER → 2021-10-04 | Day surgery (SDC) | payer MEDICARE, MEDICAID ==
[~2021-10-04] MED LIST: Iopamidol 370 76% 50 ML VIAL FS ONE
[2021-10-04 11:42] VITALS: BP 140/73; TEMP 97.9
== END | disposition home or self-care (01) ==
LOC: CT 09:38
PROVIDERS: ATTEND Urology
PROC: 0T9B30Z Drainage of Bladder with Drainage Device, Percutaneous Approach (ICD-10-PCS; principal; 2021-10-04)
DX: R33.9 Retention of urine, unspecified (principal); I12.9 Hypertensive chronic kidney disease with stage 1 through stage 4 chronic kidney disease, or unspecified chronic kidney disease; E11.22 Type 2 diabetes mellitus with diabetic chronic kidney disease; N18.9 Chronic kidney disease, unspecified; E78.5 Hyperlipidemia, unspecified; H54.3 Unqualified visual loss, both eyes; Z86.16 Personal history of COVID-19; Z79.4 Long term (current) use of insulin; Z79.84 Long term (current) use of oral hypoglycemic drugs; Z79.899 Other long term (current) drug therapy
CPT/HCPCS: 51102; Q9967

== ENCOUNTER 2021-11-17 07:18 | Day surgery (SDC) | payer MEDICARE, MEDICAID ==
[2021-11-15 14:16] VITALS: BMI 24.7
[2021-11-17 08:01] VITALS: BP 120/67; TEMP 98.4
[2021-11-17] MEDS ORDERED: Lidocaine 2% PF 5 ML VIAL ONE (08:13)
[2021-11-17] MEDS ORDERED: Sodium Bicarbonate 2.5 MEQ/5 ML VIAL ONE (08:13)
[2021-11-17] MEDS ORDERED: Iopamidol 300 61% 100 ML VIAL FS ONE (09:54)
== END 2021-11-17 09:58 | disposition home or self-care (01) ==
LOC: SPEC 07:18
PROVIDERS: ATTEND Urology
PROC: 0T9B30Z Drainage of Bladder with Drainage Device, Percutaneous Approach (ICD-10-PCS; principal; 2021-11-17)
DX: Z46.6 Encounter for fitting and adjustment of urinary device (principal); R33.9 Retention of urine, unspecified
CPT/HCPCS: 51102; J2001

== ENCOUNTER 2022-01-30 14:33 | Inpatient (IN) | payer MEDICARE, MEDICAID ==
[~2022-01-30 14:33] MED LIST changes: -Iopamidol 370 76% 50 ML VIAL FS ONE; +Iopamidol-370 76% 500 ML 1 ML ONE
[2022-01-30] MEDS ORDERED: Heparin 1,000 UNITS/ML VIAL ONE (14:36)
[2022-01-30] MEDS ORDERED: Oseltamivir 75 MG CAP PO SCH ×2 (15:00→21:00)
[2022-01-30 15:16] LABS: Hemoglobin 9.5 g/dL (14.0-18.0); Mean Corpuscular HGB CONC 33.7 g/dL (32.0-36.0); Mean Corpuscular Hemoglobin 31.5 pg (27.0-31.0); Mean Corpuscular Volume 93.4 fl (78.0-98.0); Platelet Count 356 10x3/uL (130-400); RBC Distribution Width 11.6 % (11.5-14.5); Red Blood Cell (RBC) Count 3.03 mill/uL (4.70-6.10); White Blood Cell (WBC) Count 25.3 10x3/uL (4.8-10.8)
[2022-01-30 15:40] LABS: ALT (SGPT) 21 U/L (8-55); AST (SGOT) 23 U/L (5-34); Albumin 2.7 g/dL (3.4-4.8); Alkaline Phosphatase 79 U/L (40-110); Anion Gap 16 mmol/L (10-20); BUN (Urea Nitrogen) 29 mg/dL (8.4-25.7); Bilirubin, Total 0.9 mg/dL (0.2-1.2); Calc. Creatinine Clearance 0 mL/min (70-130); Calcium 7.7 mg/dL (7.8-10.44); Carbon Dioxide 21 mmol/L (23-31); Chloride 88 mmol/L (98-107); Estimated GFR 43; Globulin 2.9 g/dL (2.4-3.5); Glucose 339 mg/dL (83-110); Lipase 9 U/L (8-78); Magnesium 1.7 mg/dL (1.6-2.6); Potassium 3.7 mmol/L (3.5-5.1); Protein, Total 5.6 g/dL (5.8-8.1); Sodium 121 mmol/L (136-145)
[2022-01-30 15:53] LABS: Band 15 % (5-11); Burr Cells SLIGHT = 2-5 cells (100X) (0-1/hpf); Lymphocytes 3 % (21-51); MDiff Complete? YES; Monocytes 7 % (0-10); Neutrophil 75 % (42-75); Ovalocytes SLIGHT = 2-5 cells (100X) (0-1/hpf); Platelet Morphology Comment Appears Adequate; Polychromasia SLIGHT = 2-3 cells (100X) (0-2/hpf)
[2022-01-30 16:01] LABS: CKMB 1.3 ng/mL (0-6.6)
[2022-01-30] MEDS ORDERED: Vancomycin 1 GM/200 ML (FROZEN) BAG ONE (16:14)
[2022-01-30] MEDS ORDERED: Cefepime 2 GM VIAL ONE (16:14)
[2022-01-30] MEDS ORDERED: Aspirin Chewable 81 MG TAB ONE (16:14)
[2022-01-30 16:30] LABS: SARS-CoV-2 NAA Rapid Test Not Detected (NotDetected)
[2022-01-30] MEDS ORDERED: Bisacodyl 5 MG TAB PO PRN (17:21)
[2022-01-30] MEDS ORDERED: Vancomycin 1 GM in Premix Bag 1 BAG IVPB SCH (17:21)
[2022-01-30] MEDS ORDERED: Dextrose 5% in Water 1,000 ML IV PRN (17:21)
[2022-01-30] MEDS ORDERED: Dextrose 50% Abboject 50 ML SYRINGE SLOW IVP PRN (17:21)
[2022-01-30] MEDS ORDERED: Ondansetron PF 4 MG/2 ML Vial IVP PRN (17:21)
[2022-01-30 18:39] LABS: Bilirubin Negative (Negative); Blood, Urine Trace (Negative); Clarity Extra Turbid (Clear); Glucose, Urine (Dipstick) Greater than 1000 mg/dL (Negative); Ketone, Urine 10 mg/dL (Negative); Leukocyte 500 Leu/uL (Negative); Nitrite Negative (Negative); Protein, Urine (Dipstick) 50 mg/dL (Neg-Trace); Specific Gravity, Urine 1.022 (1.002-1.036); Urobilinogen Normal mg/dL (Less than 2)
[2022-01-30 18:42] LABS: Bacteria/HPF 4+ HPF (None Seen); RBC/HPF 0-3 HPF (0-3); Squamous Epithelial 0-3 HPF (0-3); Yeast-Budding 3+ HPF (None Seen)
[2022-01-30 20:40] VITALS: BMI 24.7
[2022-01-30] MEDS: Sodium Chloride 0.9% 1,000 ML IV SCH (20:53)
[2022-01-30] MEDS: HumaLOG 300 UNITS/3 ML VIAL SC PRN (21:12)
[2022-01-31] MEDS ORDERED: Cefepime 2 GM in Sodium Chloride 0.9% 100 ML IVPB SCH (04:00)
[2022-01-31] MEDS ORDERED: Cefepime 1 GM in Sodium Chloride 0.9% 100 ML IVPB SCH (04:00)
[2022-01-31 04:52] LABS: Legionella Urinary Ag Negative (Negative)
[2022-01-31 04:58] LABS: Potassium, Urine 37.8 mmol/L; Sodium, Urine Less than 20 mmol/L (Not Available)
[2022-01-31 05:26] LABS: Anion Gap 13 mmol/L (10-20); BUN (Urea Nitrogen) 24 mg/dL (8.4-25.7); Calc. Creatinine Clearance 44 mL/min (70-130); Calcium 7.5 mg/dL (7.8-10.44); Carbon Dioxide 18 mmol/L (23-31); Chloride 95 mmol/L (98-107); Estimated GFR 60; Glucose 198 mg/dL (83-110); Potassium 3.4 mmol/L (3.5-5.1); Sodium 123 mmol/L (136-145)
[2022-01-31 05:34] LABS: Band 31 % (5-11); Hemoglobin 8.9 g/dL (14.0-18.0); Lymphocytes 3 % (21-51); MDiff Complete? YES; Mean Corpuscular HGB CONC 34.1 g/dL (32.0-36.0); Mean Corpuscular Hemoglobin 32.1 pg (27.0-31.0); Mean Corpuscular Volume 94.1 fl (78.0-98.0); Monocytes 1 % (0-10); Neutrophil 65 % (42-75); Platelet Count 335 10x3/uL (130-400); RBC Distribution Width 11.6 % (11.5-14.5); Red Blood Cell (RBC) Count 2.78 mill/uL (4.70-6.10); White Blood Cell (WBC) Count 26.7 10x3/uL (4.8-10.8)
[2022-01-31] MEDS ORDERED: FLU VACC QS2022-23(65YR UP)/PF 240 MCG/0.7 ML SYRINGE IM ONE (09:00)
[2022-01-31] MEDS ORDERED: Potassium Chloride 20 MEQ TAB PO SCH (10:00)
[2022-01-31] MEDS: Enoxaparin Sodium 40 MG/0.4 ML SYRINGE SC SCH (10:32)
[2022-01-31] MEDS: Sodium Chloride 0.9% 1,000 ML IV SCH (10:33)
[2022-01-31] MEDS ORDERED: Meropenem 1 GM in Sodium Chloride 0.9% 100 ML IVPB SCH ×2 (11:00→12:00)
[2022-01-31] MEDS: Oseltamivir 6 MG/ML ORAL SUSP PO SCH ×2 (12:23→22:32)
[2022-01-31] MEDS: Carvedilol 3.125 MG TAB PO SCH (16:21)
[2022-01-31] MEDS: Vancomycin HCl 750 MG in Sodium Chloride 0.9% 250 ML 250 ML IVPB SCH (16:23)
[2022-01-31 16:40] LABS: Potassium 3.7 mmol/L (3.5-5.1)
[2022-01-31] MEDS: Mometasone Furoate 120 PUFF 220 MCG INH SCH (20:38)
[2022-01-31] MEDS: Meropenem 1 GM in Sodium Chloride 0.9% 100 ML IVPB SCH (22:32)
[2022-01-31] MEDS: Atorvastatin Calcium 20 MG TAB PO SCH (22:32)
[2022-02-01 05:38] LABS: Anion Gap 11 mmol/L (10-20); BUN (Urea Nitrogen) 26 mg/dL (8.4-25.7); Calc. Creatinine Clearance 48 mL/min (70-130); Calcium 7.5 mg/dL (7.8-10.44); Carbon Dioxide 18 mmol/L (23-31); Chloride 99 mmol/L (98-107); Estimated GFR 68; Glucose 165 mg/dL (83-110); Potassium 3.4 mmol/L (3.5-5.1); Sodium 125 mmol/L (136-145)
[2022-02-01 05:54] LABS: Band 18 % (5-11); Hemoglobin 8.1 g/dL (14.0-18.0); Lymphocytes 5 % (21-51); MDiff Complete? YES; Mean Corpuscular HGB CONC 33.2 g/dL (32.0-36.0); Mean Corpuscular Hemoglobin 31.4 pg (27.0-31.0); Mean Corpuscular Volume 94.7 fl (78.0-98.0); Mean Platelet Volume 6.8 fL (7.4-10.4); Monocytes 11 % (0-10); Neutrophil 66 % (42-75); Platelet Count 367 10x3/uL (130-400); RBC Distribution Width 11.5 % (11.5-14.5); Red Blood Cell (RBC) Count 2.59 mill/uL (4.70-6.10); White Blood Cell (WBC) Count 22.9 10x3/uL (4.8-10.8)
[2022-02-01] MEDS: Mometasone Furoate 120 PUFF 220 MCG INH SCH ×2 (07:22→18:49)
[2022-02-01] MEDS: Sodium Chloride 0.9% 1,000 ML IV SCH (07:55)
[2022-02-01] MEDS ORDERED: Furosemide 20 MG TAB PO SCH (09:00)
[2022-02-01] MEDS ORDERED: Potassium Chloride 20 MEQ TAB PO SCH (09:15)
[2022-02-01] MEDS: Carvedilol 3.125 MG TAB PO SCH ×2 (09:43→18:01)
[2022-02-01] MEDS: Citalopram 20 MG TAB PO SCH (09:44)
[2022-02-01] MEDS: Enoxaparin Sodium 40 MG/0.4 ML SYRINGE SC SCH (09:44)
[2022-02-01] MEDS: Cholecalciferol 1,000 UNITS (25 MCG) TAB PO SCH (09:44)
[2022-02-01] MEDS: Meropenem 1 GM in Sodium Chloride 0.9% 100 ML IVPB SCH ×2 (09:49→22:05)
[2022-02-01] MEDS: Acetaminophen 650 MG/20.3 ML UDCUP PO PRN ×2 (12:05→18:13)
[2022-02-01] MEDS: Oseltamivir 6 MG/ML ORAL SUSP PO SCH ×2 (12:06→22:05)
[2022-02-01 17:40] LABS: Vancomycin, Trough 9.8 ug/mL
[2022-02-01] MEDS: Vancomycin HCl 750 MG in Sodium Chloride 0.9% 250 ML 250 ML IVPB SCH (17:56)
[2022-02-01] MEDS ORDERED: Vancomycin 1 GM in Premix Bag 1 BAG IVPB SCH ×2 (18:00)
[2022-02-01] MEDS: HumaLOG 300 UNITS/3 ML VIAL SC PRN ×2 (18:01→22:05)
[2022-02-01] MEDS: Atorvastatin Calcium 20 MG TAB PO SCH (22:05)
[2022-02-02] MEDS: Acetaminophen 650 MG/20.3 ML UDCUP PO PRN (00:13)
[2022-02-02 07:40] LABS: Hemoglobin 7.8 g/dL (14.0-18.0); Mean Corpuscular Hemoglobin 30.3 pg (27.0-31.0); Mean Corpuscular Volume 94.9 fl (78.0-98.0); Mean Platelet Volume 6.6 fL (7.4-10.4); Platelet Count 410 10x3/uL (130-400); RBC Distribution Width 11.6 % (11.5-14.5); Red Blood Cell (RBC) Count 2.58 mill/uL (4.70-6.10); White Blood Cell (WBC) Count 16.7 10x3/uL (4.8-10.8)
[2022-02-02 07:51] LABS: Phosphorus 1.8 mg/dL (2.3-4.7)
[2022-02-02 07:56] LABS: Anion Gap 11 mmol/L (10-20); BUN (Urea Nitrogen) 27 mg/dL (8.4-25.7); Calc. Creatinine Clearance 47 mL/min (70-130); Calcium 7.6 mg/dL (7.8-10.44); Carbon Dioxide 18 mmol/L (23-31); Chloride 100 mmol/L (98-107); Estimated GFR 65; Glucose 179 mg/dL (83-110); Magnesium 1.9 mg/dL (1.6-2.6); Potassium 3.5 mmol/L (3.5-5.1); Sodium 125 mmol/L (136-145)
[2022-02-02] MEDS: Meropenem 1 GM in Sodium Chloride 0.9% 100 ML IVPB SCH (08:07)
[2022-02-02] MEDS: Cholecalciferol 1,000 UNITS (25 MCG) TAB PO SCH (08:08)
[2022-02-02] MEDS: Oseltamivir 6 MG/ML ORAL SUSP PO SCH ×2 (08:08→20:26)
[2022-02-02] MEDS: Enoxaparin Sodium 40 MG/0.4 ML SYRINGE SC SCH (08:08)
[2022-02-02] MEDS: metFORMIN 500 MG TAB PO SCH ×2 (08:08→16:50)
[2022-02-02] MEDS: Lisinopril 10 MG TAB PO SCH (08:09)
[2022-02-02] MEDS: Citalopram 20 MG TAB PO SCH (08:09)
[2022-02-02] MEDS: Carvedilol 3.125 MG TAB PO SCH ×2 (08:09→16:50)
[2022-02-02 10:13] LABS: Band 22 % (5-11); Eosinophils 2 % (0-10); Lymphocytes 7 % (21-51); MDiff Complete? YES; Metamyelocyte 1 % (0-0); Monocytes 7 % (0-10); Neutrophil 60 % (42-75); Platelet Morphology Comment Appears Increased; Polychromasia SLIGHT = 2-3 cells (100X) (0-2/hpf); Reactive Lymphocytes 1 % (0-10)
[2022-02-02] MEDS: CEFAZOLIN 2 GM in Sodium Chloride 0.9% 100 ML IVPB SCH ×2 (11:13→18:19)
[2022-02-02] MEDS: Mometasone Furoate 120 PUFF 220 MCG INH SCH (13:38)
[2022-02-02] MEDS ORDERED: CEFAZOLIN 1 GM VIAL SLOW IVP SCH (14:00)
[2022-02-02] MEDS: Sodium Chloride 1 GM TAB PO SCH ×2 (14:25→20:26)
[2022-02-02] MEDS: HumaLOG 300 UNITS/3 ML VIAL SC PRN (16:50)
[2022-02-02] MEDS: Mometasone 200 MCG/PUFF (1 INHALER) INH SCH (18:48)
[2022-02-02] MEDS: Atorvastatin Calcium 20 MG TAB PO SCH (20:26)
[2022-02-03] MEDS: CEFAZOLIN 2 GM in Sodium Chloride 0.9% 100 ML IVPB SCH ×3 (02:26→18:54)
[2022-02-03 07:15] LABS: Mean Corpuscular HGB CONC 33.8 g/dL (32.0-36.0); Mean Corpuscular Hemoglobin 32.1 pg (27.0-31.0); Mean Corpuscular Volume 94.8 fl (78.0-98.0); Mean Platelet Volume 6.9 fL (7.4-10.4); Platelet Count 468 10x3/uL (130-400); RBC Distribution Width 11.9 % (11.5-14.5); Red Blood Cell (RBC) Count 2.49 mill/uL (4.70-6.10); White Blood Cell (WBC) Count 16.9 10x3/uL (4.8-10.8)
[2022-02-03] MEDS: Mometasone 200 MCG/PUFF (1 INHALER) INH SCH ×2 (07:33→18:42)
[2022-02-03 07:39] LABS: Anion Gap 9 mmol/L (10-20); BUN (Urea Nitrogen) 26 mg/dL (8.4-25.7); Calc. Creatinine Clearance 42 mL/min (70-130); Calcium 7.3 mg/dL (7.8-10.44); Carbon Dioxide 22 mmol/L (23-31); Chloride 101 mmol/L (98-107); Estimated GFR 57; Glucose 188 mg/dL (83-110); Sodium 128 mmol/L (136-145)
[2022-02-03 08:25] LABS: Band 15 % (5-11); Burr Cells SLIGHT = 2-5 cells (100X) (0-1/hpf); Lymphocytes 9 % (21-51); MDiff Complete? YES; Monocytes 10 % (0-10); Neutrophil 66 % (42-75); Platelet Morphology Comment Appears Increased; Polychromasia SLIGHT = 2-3 cells (100X) (0-2/hpf)
[2022-02-03] MEDS: Cholecalciferol 1,000 UNITS (25 MCG) TAB PO SCH (09:19)
[2022-02-03] MEDS: Carvedilol 3.125 MG TAB PO SCH ×2 (09:19→16:39)
[2022-02-03] MEDS: metFORMIN 500 MG TAB PO SCH ×2 (09:19→16:39)
[2022-02-03] MEDS: Oseltamivir 6 MG/ML ORAL SUSP PO SCH ×2 (09:20→21:43)
[2022-02-03] MEDS: Lisinopril 10 MG TAB PO SCH (09:20)
[2022-02-03] MEDS: Sodium Chloride 1 GM TAB PO SCH ×3 (09:20→21:43)
[2022-02-03] MEDS: Enoxaparin Sodium 40 MG/0.4 ML SYRINGE SC SCH (09:20)
[2022-02-03] MEDS: Atorvastatin Calcium 20 MG TAB PO SCH (21:43)
[2022-02-04] MEDS: CEFAZOLIN 2 GM in Sodium Chloride 0.9% 100 ML IVPB SCH ×3 (02:07→18:20)
[2022-02-04] MEDS: Mometasone 200 MCG/PUFF (1 INHALER) INH SCH ×2 (06:51→19:04)
[2022-02-04 07:21] LABS: #Eosinphils 0.2 thou/uL (0.0-0.7); #Lymphocytes 1.4 thou/uL (1.20-3.40); #Monocytes 1.5 thou/uL (0.11-0.59); #Neutrophils 10.8 thou/uL (1.40-6.50); %Basophils 0.2 % (0.0-1.0); %Eosinophils 1.3 % (0.0-10.0); %Lymphocytes 9.9 % (21.0-51.0); %Monocytes 10.6 % (0.0-10.0); %Neutrophils 78.1 % (42.0-75.0); Hemoglobin 8.3 g/dL (14.0-18.0); Mean Corpuscular HGB CONC 33.7 g/dL (32.0-36.0); Mean Corpuscular Hemoglobin 32.8 pg (27.0-31.0); Mean Corpuscular Volume 97.4 fl (78.0-98.0); Mean Platelet Volume 6.5 fL (7.4-10.4); Platelet Count 513 10x3/uL (130-400); RBC Distribution Width 11.8 % (11.5-14.5); Red Blood Cell (RBC) Count 2.53 mill/uL (4.70-6.10); White Blood Cell (WBC) Count 13.8 10x3/uL (4.8-10.8)
[2022-02-04 07:34] LABS: Anion Gap 10 mmol/L (10-20); BUN (Urea Nitrogen) 22 mg/dL (8.4-25.7); Calc. Creatinine Clearance 49 mL/min (70-130); Calcium 7.6 mg/dL (7.8-10.44); Carbon Dioxide 21 mmol/L (23-31); Chloride 104 mmol/L (98-107); Estimated GFR 69; Glucose 175 mg/dL (83-110); Potassium 3.8 mmol/L (3.5-5.1); Sodium 131 mmol/L (136-145)
[2022-02-04] MEDS: Oseltamivir 6 MG/ML ORAL SUSP PO SCH (08:20)
[2022-02-04] MEDS: Sodium Chloride 1 GM TAB PO SCH ×3 (08:21→21:07)
[2022-02-04] MEDS: Lisinopril 10 MG TAB PO SCH (08:21)
[2022-02-04] MEDS: Cholecalciferol 1,000 UNITS (25 MCG) TAB PO SCH (08:21)
[2022-02-04] MEDS: Carvedilol 3.125 MG TAB PO SCH ×2 (08:21→17:14)
[2022-02-04] MEDS: Enoxaparin Sodium 40 MG/0.4 ML SYRINGE SC SCH (08:21)
[2022-02-04] MEDS: metFORMIN 500 MG TAB PO SCH ×2 (08:22→17:14)
[2022-02-04] MEDS: HumaLOG 300 UNITS/3 ML VIAL SC PRN (13:33)
[2022-02-04] MEDS: Atorvastatin Calcium 20 MG TAB PO SCH (21:07)
[2022-02-05] MEDS: CEFAZOLIN 2 GM in Sodium Chloride 0.9% 100 ML IVPB SCH ×3 (02:52→18:22)
[2022-02-05 07:33] LABS: #Eosinphils 0.2 thou/uL (0.0-0.7); #Lymphocytes 1.4 thou/uL (1.20-3.40); #Monocytes 1.3 thou/uL (0.11-0.59); #Neutrophils 9.9 thou/uL (1.40-6.50); %Basophils 0.1 % (0.0-1.0); %Eosinophils 1.9 % (0.0-10.0); %Lymphocytes 11.1 % (21.0-51.0); %Monocytes 10.4 % (0.0-10.0); %Neutrophils 76.6 % (42.0-75.0); Hemoglobin 7.4 g/dL (14.0-18.0); Mean Corpuscular HGB CONC 32.4 g/dL (32.0-36.0); Mean Corpuscular Hemoglobin 31.1 pg (27.0-31.0); Mean Corpuscular Volume 95.8 fl (78.0-98.0); Mean Platelet Volume 6.4 fL (7.4-10.4); Platelet Count 500 10x3/uL (130-400); RBC Distribution Width 11.9 % (11.5-14.5); Red Blood Cell (RBC) Count 2.36 mill/uL (4.70-6.10)
[2022-02-05 07:56] LABS: Anion Gap 11 mmol/L (10-20); BUN (Urea Nitrogen) 22 mg/dL (8.4-25.7); Calc. Creatinine Clearance 51 mL/min (70-130); Calcium 7.6 mg/dL (7.8-10.44); Carbon Dioxide 21 mmol/L (23-31); Chloride 106 mmol/L (98-107); Estimated GFR 72; Glucose 139 mg/dL (83-110); Potassium 3.5 mmol/L (3.5-5.1); Sodium 134 mmol/L (136-145)
[2022-02-05] MEDS: metFORMIN 500 MG TAB PO SCH ×2 (08:31→17:02)
[2022-02-05] MEDS: Sodium Chloride 1 GM TAB PO SCH ×3 (08:31→21:22)
[2022-02-05] MEDS: Lisinopril 10 MG TAB PO SCH (08:31)
[2022-02-05] MEDS: Carvedilol 3.125 MG TAB PO SCH ×2 (08:31→17:02)
[2022-02-05] MEDS: Cholecalciferol 1,000 UNITS (25 MCG) TAB PO SCH (08:31)
[2022-02-05] MEDS: Enoxaparin Sodium 40 MG/0.4 ML SYRINGE SC SCH (08:31)
[2022-02-05] MEDS: Mometasone 200 MCG/PUFF (1 INHALER) INH SCH ×2 (08:45→19:19)
[2022-02-05] MEDS: Atorvastatin Calcium 20 MG TAB PO SCH (21:23)
[2022-02-06] MEDS: CEFAZOLIN 2 GM in Sodium Chloride 0.9% 100 ML IVPB SCH ×3 (02:50→18:10)
[2022-02-06 06:55] LABS: #Eosinphils 0.2 thou/uL (0.0-0.7); #Lymphocytes 1.5 thou/uL (1.20-3.40); #Monocytes 1.2 thou/uL (0.11-0.59); #Neutrophils 10.6 thou/uL (1.40-6.50); %Basophils 0.1 % (0.0-1.0); %Eosinophils 1.6 % (0.0-10.0); %Lymphocytes 11.2 % (21.0-51.0); %Monocytes 8.6 % (0.0-10.0); %Neutrophils 78.6 % (42.0-75.0); Hemoglobin 7.8 g/dL (14.0-18.0); Mean Corpuscular HGB CONC 33.9 g/dL (32.0-36.0); Mean Corpuscular Hemoglobin 32.5 pg (27.0-31.0); Mean Corpuscular Volume 95.9 fl (78.0-98.0); Mean Platelet Volume 6.1 fL (7.4-10.4); Platelet Count 529 10x3/uL (130-400); RBC Distribution Width 11.7 % (11.5-14.5); Red Blood Cell (RBC) Count 2.41 mill/uL (4.70-6.10); White Blood Cell (WBC) Count 13.5 10x3/uL (4.8-10.8)
[2022-02-06 07:19] LABS: Anion Gap 10 mmol/L (10-20); BUN (Urea Nitrogen) 20 mg/dL (8.4-25.7); Calc. Creatinine Clearance 61 mL/min (70-130); Calcium 7.6 mg/dL (7.8-10.44); Carbon Dioxide 22 mmol/L (23-31); Chloride 103 mmol/L (98-107); Estimated GFR 87; Glucose 81 mg/dL (83-110); Potassium 3.6 mmol/L (3.5-5.1); Sodium 131 mmol/L (136-145)
[2022-02-06] MEDS: Mometasone 200 MCG/PUFF (1 INHALER) INH SCH ×2 (07:31→19:34)
[2022-02-06] MEDS: metFORMIN 500 MG TAB PO SCH ×2 (09:13→15:59)
[2022-02-06] MEDS: Lisinopril 10 MG TAB PO SCH (09:13)
[2022-02-06] MEDS: Carvedilol 3.125 MG TAB PO SCH ×2 (09:13→15:59)
[2022-02-06] MEDS: Cholecalciferol 1,000 UNITS (25 MCG) TAB PO SCH (09:13)
[2022-02-06] MEDS: Enoxaparin Sodium 40 MG/0.4 ML SYRINGE SC SCH (09:14)
[2022-02-06] MEDS: Sodium Chloride 1 GM TAB PO SCH ×3 (09:14→20:15)
[2022-02-06] MEDS: Atorvastatin Calcium 20 MG TAB PO SCH (20:15)
[2022-02-07] MEDS: CEFAZOLIN 2 GM in Sodium Chloride 0.9% 100 ML IVPB SCH ×3 (02:56→17:56)
[2022-02-07 07:23] LABS: #Eosinphils 0.2 thou/uL (0.0-0.7); #Lymphocytes 1.6 thou/uL (1.20-3.40); #Neutrophils 8.8 thou/uL (1.40-6.50); %Basophils 0.4 % (0.0-1.0); %Eosinophils 1.4 % (0.0-10.0); %Lymphocytes 13.5 % (21.0-51.0); %Monocytes 8.9 % (0.0-10.0); %Neutrophils 75.8 % (42.0-75.0); Hemoglobin 7.9 g/dL (14.0-18.0); Mean Corpuscular HGB CONC 32.4 g/dL (32.0-36.0); Mean Corpuscular Hemoglobin 31.4 pg (27.0-31.0); Mean Platelet Volume 6.1 fL (7.4-10.4); Platelet Count 562 10x3/uL (130-400); RBC Distribution Width 11.7 % (11.5-14.5); White Blood Cell (WBC) Count 11.6 10x3/uL (4.8-10.8)
[2022-02-07] MEDS: Mometasone 200 MCG/PUFF (1 INHALER) INH SCH ×2 (07:37→20:49)
[2022-02-07 07:46] LABS: Anion Gap 10 mmol/L (10-20); BUN (Urea Nitrogen) 18 mg/dL (8.4-25.7); Calc. Creatinine Clearance 62 mL/min (70-130); Calcium 7.6 mg/dL (7.8-10.44); Carbon Dioxide 23 mmol/L (23-31); Chloride 103 mmol/L (98-107); Estimated GFR 88; Glucose 107 mg/dL (83-110); Potassium 3.7 mmol/L (3.5-5.1); Sodium 132 mmol/L (136-145)
[2022-02-07] MEDS: metFORMIN 500 MG TAB PO SCH ×2 (09:44→16:05)
[2022-02-07] MEDS: Cholecalciferol 1,000 UNITS (25 MCG) TAB PO SCH (09:44)
[2022-02-07] MEDS: Carvedilol 3.125 MG TAB PO SCH ×2 (09:45→16:05)
[2022-02-07] MEDS: Lisinopril 10 MG TAB PO SCH (09:45)
[2022-02-07] MEDS: Sodium Chloride 1 GM TAB PO SCH ×3 (09:45→22:13)
[2022-02-07] MEDS: Enoxaparin Sodium 40 MG/0.4 ML SYRINGE SC SCH (09:45)
[2022-02-07] MEDS: Acetaminophen 650 MG/20.3 ML UDCUP PO PRN (18:30)
[2022-02-07] MEDS: Atorvastatin Calcium 20 MG TAB PO SCH (22:13)
[2022-02-08] MEDS: CEFAZOLIN 2 GM in Sodium Chloride 0.9% 100 ML IVPB SCH ×3 (03:19→18:13)
[2022-02-08 07:25] LABS: #Eosinphils 0.1 thou/uL (0.0-0.7); #Lymphocytes 1.7 thou/uL (1.20-3.40); #Monocytes 1.1 thou/uL (0.11-0.59); #Neutrophils 11.4 thou/uL (1.40-6.50); %Basophils 0.2 % (0.0-1.0); %Eosinophils 0.8 % (0.0-10.0); %Lymphocytes 11.6 % (21.0-51.0); %Monocytes 7.5 % (0.0-10.0); %Neutrophils 79.9 % (42.0-75.0); Hemoglobin 7.3 g/dL (14.0-18.0); Mean Corpuscular HGB CONC 32.4 g/dL (32.0-36.0); Mean Corpuscular Hemoglobin 31.4 pg (27.0-31.0); Mean Corpuscular Volume 96.8 fl (78.0-98.0); Mean Platelet Volume 6.1 fL (7.4-10.4); Platelet Count 575 10x3/uL (130-400); RBC Distribution Width 11.7 % (11.5-14.5); Red Blood Cell (RBC) Count 2.34 mill/uL (4.70-6.10); White Blood Cell (WBC) Count 14.2 10x3/uL (4.8-10.8)
[2022-02-08 07:48] LABS: Anion Gap 10 mmol/L (10-20); BUN (Urea Nitrogen) 16 mg/dL (8.4-25.7); Calc. Creatinine Clearance 62 mL/min (70-130); Calcium 7.5 mg/dL (7.8-10.44); Carbon Dioxide 23 mmol/L (23-31); Chloride 103 mmol/L (98-107); Estimated GFR 88; Potassium 3.5 mmol/L (3.5-5.1); Sodium 132 mmol/L (136-145)
[2022-02-08 07:56] LABS: Glucose 58 mg/dL (83-110)
[2022-02-08] MEDS: Mometasone 200 MCG/PUFF (1 INHALER) INH SCH ×2 (08:20→19:01)
[2022-02-08] MEDS: metFORMIN 500 MG TAB PO SCH ×2 (08:29→16:35)
[2022-02-08] MEDS: Sodium Chloride 1 GM TAB PO SCH ×3 (09:37→20:02)
[2022-02-08] MEDS: Enoxaparin Sodium 40 MG/0.4 ML SYRINGE SC SCH (09:37)
[2022-02-08] MEDS: Lisinopril 10 MG TAB PO SCH (09:38)
[2022-02-08] MEDS: Carvedilol 3.125 MG TAB PO SCH ×2 (09:38→16:43)
[2022-02-08] MEDS: Cholecalciferol 1,000 UNITS (25 MCG) TAB PO SCH (09:38)
[2022-02-08] MEDS: Acetaminophen 650 MG/20.3 ML UDCUP PO PRN (17:07)
[2022-02-08] MEDS: Atorvastatin Calcium 20 MG TAB PO SCH (20:02)
[2022-02-08] MEDS: HYDROcodone/Acetaminophen 5/325 mg Tablet PO PRN (23:19)
[2022-02-09] MEDS: CEFAZOLIN 2 GM in Sodium Chloride 0.9% 100 ML IVPB SCH ×3 (03:10→18:30)
[2022-02-09] MEDS: HYDROcodone/Acetaminophen 5/325 mg Tablet PO PRN ×2 (04:21→09:25)
[2022-02-09 07:08] LABS: #Basophils 0.1 thou/uL (0.0-0.2); #Monocytes 0.9 thou/uL (0.11-0.59); #Neutrophils 8.8 thou/uL (1.40-6.50); %Basophils 0.4 % (0.0-1.0); %Eosinophils 0.3 % (0.0-10.0); %Lymphocytes 17.2 % (21.0-51.0); %Monocytes 7.9 % (0.0-10.0); %Neutrophils 74.1 % (42.0-75.0); Mean Corpuscular Hemoglobin 31.6 pg (27.0-31.0); Mean Platelet Volume 6.1 fL (7.4-10.4); Platelet Count 560 10x3/uL (130-400); Red Blood Cell (RBC) Count 2.21 mill/uL (4.70-6.10); White Blood Cell (WBC) Count 11.9 10x3/uL (4.8-10.8)
[2022-02-09 07:24] LABS: Anion Gap 10 mmol/L (10-20); BUN (Urea Nitrogen) 15 mg/dL (8.4-25.7); Calc. Creatinine Clearance 51 mL/min (70-130); Calcium 7.3 mg/dL (7.8-10.44); Carbon Dioxide 24 mmol/L (23-31); Chloride 103 mmol/L (98-107); Estimated GFR 72; Glucose 109 mg/dL (83-110); Potassium 3.7 mmol/L (3.5-5.1); Sodium 133 mmol/L (136-145)
[2022-02-09] MEDS: Sodium Chloride 1 GM TAB PO SCH ×3 (09:17→19:51)
[2022-02-09] MEDS: Cholecalciferol 1,000 UNITS (25 MCG) TAB PO SCH (09:17)
[2022-02-09] MEDS: Lisinopril 10 MG TAB PO SCH (09:17)
[2022-02-09] MEDS: Carvedilol 3.125 MG TAB PO SCH ×2 (09:17→16:37)
[2022-02-09] MEDS: Enoxaparin Sodium 40 MG/0.4 ML SYRINGE SC SCH (09:18)
[2022-02-09] MEDS: metFORMIN 500 MG TAB PO SCH ×2 (09:20→16:37)
[2022-02-09] MEDS: Mometasone 200 MCG/PUFF (1 INHALER) INH SCH ×2 (10:46→19:37)
[2022-02-09] MEDS: Atorvastatin Calcium 20 MG TAB PO SCH (19:51)
[2022-02-10] MEDS: CEFAZOLIN 2 GM in Sodium Chloride 0.9% 100 ML IVPB SCH ×3 (02:26→19:25)
[2022-02-10] MEDS: HYDROcodone/Acetaminophen 5/325 mg Tablet PO PRN ×2 (05:44→20:08)
[2022-02-10 06:47] LABS: Reticulocyte Count 3.1 % (0.5-1.5)
[2022-02-10 06:57] LABS: #Lymphocytes 1.8 thou/uL (1.20-3.40); #Monocytes 0.9 thou/uL (0.11-0.59); #Neutrophils 9.2 thou/uL (1.40-6.50); %Basophils 0.3 % (0.0-1.0); %Eosinophils 0.3 % (0.0-10.0); %Lymphocytes 14.7 % (21.0-51.0); %Monocytes 7.8 % (0.0-10.0); %Neutrophils 76.9 % (42.0-75.0); Hemoglobin 7.5 g/dL (14.0-18.0); Mean Corpuscular HGB CONC 32.2 g/dL (32.0-36.0); Mean Corpuscular Hemoglobin 30.8 pg (27.0-31.0); Mean Corpuscular Volume 95.7 fl (78.0-98.0); Platelet Count 520 10x3/uL (130-400); RBC Distribution Width 11.7 % (11.5-14.5); Red Blood Cell (RBC) Count 2.42 mill/uL (4.70-6.10)
[2022-02-10 07:06] LABS: Anion Gap 11 mmol/L (10-20); BUN (Urea Nitrogen) 14 mg/dL (8.4-25.7); Calc. Creatinine Clearance 55 mL/min (70-130); Calcium 7.5 mg/dL (7.8-10.44); Carbon Dioxide 25 mmol/L (23-31); Chloride 99 mmol/L (98-107); Estimated GFR 78; Glucose 104 mg/dL (83-110); Iron 29 ug/dL (65-175); Potassium 3.5 mmol/L (3.5-5.1); Sodium 131 mmol/L (136-145)
[2022-02-10] MEDS: Mometasone 200 MCG/PUFF (1 INHALER) INH SCH ×2 (08:11→19:27)
[2022-02-10] MEDS: Carvedilol 3.125 MG TAB PO SCH ×2 (09:51→16:10)
[2022-02-10] MEDS: Cholecalciferol 1,000 UNITS (25 MCG) TAB PO SCH (09:51)
[2022-02-10] MEDS: metFORMIN 500 MG TAB PO SCH ×2 (09:51→16:10)
[2022-02-10] MEDS: Lisinopril 10 MG TAB PO SCH (09:52)
[2022-02-10] MEDS: Sodium Chloride 1 GM TAB PO SCH ×3 (09:52→20:08)
[2022-02-10] MEDS: Enoxaparin Sodium 40 MG/0.4 ML SYRINGE SC SCH ×2 (09:57→10:12)
[2022-02-10] MEDS: Ferrous Sulfate 325 MG TAB PO SCH (16:10)
[2022-02-10] MEDS: Atorvastatin Calcium 20 MG TAB PO SCH (20:07)
[2022-02-11] MEDS: CEFAZOLIN 2 GM in Sodium Chloride 0.9% 100 ML IVPB SCH ×3 (03:26→17:36)
[2022-02-11] MEDS: Mometasone 200 MCG/PUFF (1 INHALER) INH SCH ×2 (07:39→19:06)
[2022-02-11] MEDS: Cholecalciferol 1,000 UNITS (25 MCG) TAB PO SCH (08:19)
[2022-02-11] MEDS: Enoxaparin Sodium 40 MG/0.4 ML SYRINGE SC SCH (08:19)
[2022-02-11] MEDS: Ferrous Sulfate 325 MG TAB PO SCH ×2 (08:20→17:36)
[2022-02-11] MEDS: metFORMIN 500 MG TAB PO SCH ×2 (08:20→17:36)
[2022-02-11] MEDS: Lisinopril 10 MG TAB PO SCH (08:20)
[2022-02-11] MEDS: Carvedilol 3.125 MG TAB PO SCH ×2 (08:20→17:36)
[2022-02-11] MEDS: Sodium Chloride 1 GM TAB PO SCH ×3 (09:41→20:04)
[2022-02-11 10:18] LABS: Hemoglobin 7.5 g/dL (14.0-18.0); Platelet Count 539 10x3/uL (130-400)
[2022-02-11 10:41] LABS: Anion Gap 8 mmol/L (10-20); BUN (Urea Nitrogen) 12 mg/dL (8.4-25.7); Calc. Creatinine Clearance 60 mL/min (70-130); Calcium 7.5 mg/dL (7.8-10.44); Carbon Dioxide 27 mmol/L (23-31); Chloride 99 mmol/L (98-107); Estimated GFR 87; Glucose 78 mg/dL (83-110); Potassium 3.6 mmol/L (3.5-5.1); Sodium 130 mmol/L (136-145)
[2022-02-11] MEDS ORDERED: Senokot S 8.6-50 MG TAB PO SCH (10:45)
[2022-02-11] MEDS: Senokot S 8.6-50 MG TAB PO SCH (20:04)
[2022-02-11] MEDS: Atorvastatin Calcium 20 MG TAB PO SCH (20:04)
[2022-02-11] MEDS: HYDROcodone/Acetaminophen 5/325 mg Tablet PO PRN (20:04)
[2022-02-12] MEDS: CEFAZOLIN 2 GM in Sodium Chloride 0.9% 100 ML IVPB SCH ×3 (02:53→17:37)
[2022-02-12] MEDS: Mometasone 200 MCG/PUFF (1 INHALER) INH SCH ×2 (06:52→18:51)
[2022-02-12 07:11] LABS: Anion Gap 11 mmol/L (10-20); BUN (Urea Nitrogen) 14 mg/dL (8.4-25.7); Calc. Creatinine Clearance 55 mL/min (70-130); Calcium 7.5 mg/dL (7.8-10.44); Carbon Dioxide 25 mmol/L (23-31); Chloride 101 mmol/L (98-107); Estimated GFR 78; Glucose 73 mg/dL (83-110); Potassium 3.7 mmol/L (3.5-5.1); Sodium 133 mmol/L (136-145)
[2022-02-12] MEDS: Sodium Chloride 1 GM TAB PO SCH ×3 (08:43→20:54)
[2022-02-12] MEDS: Enoxaparin Sodium 40 MG/0.4 ML SYRINGE SC SCH (08:43)
[2022-02-12] MEDS: Cholecalciferol 1,000 UNITS (25 MCG) TAB PO SCH (08:43)
[2022-02-12] MEDS: Ferrous Sulfate 325 MG TAB PO SCH ×2 (08:43→17:37)
[2022-02-12] MEDS: HYDROcodone/Acetaminophen 5/325 mg Tablet PO PRN (08:44)
[2022-02-12] MEDS: Carvedilol 3.125 MG TAB PO SCH ×2 (08:44→17:37)
[2022-02-12] MEDS: Senokot S 8.6-50 MG TAB PO SCH ×2 (08:44→20:54)
[2022-02-12] MEDS: metFORMIN 500 MG TAB PO SCH ×2 (08:44→17:37)
[2022-02-12] MEDS: Lisinopril 10 MG TAB PO SCH (08:44)
[2022-02-12] MEDS: Atorvastatin Calcium 20 MG TAB PO SCH (20:54)
[2022-02-13] MEDS: CEFAZOLIN 2 GM in Sodium Chloride 0.9% 100 ML IVPB SCH ×3 (01:22→18:07)
[2022-02-13 04:33] LABS: #Basophils 0.1 thou/uL (0.0-0.2); #Eosinphils 0.1 thou/uL (0.0-0.7); #Lymphocytes 1.8 thou/uL (1.20-3.40); #Monocytes 0.8 thou/uL (0.11-0.59); #Neutrophils 9.2 thou/uL (1.40-6.50); %Basophils 0.5 % (0.0-1.0); %Eosinophils 0.6 % (0.0-10.0); %Monocytes 6.9 % (0.0-10.0); %Neutrophils 77.1 % (42.0-75.0); Hemoglobin 7.6 g/dL (14.0-18.0); Mean Corpuscular HGB CONC 33.1 g/dL (32.0-36.0); Mean Corpuscular Hemoglobin 31.8 pg (27.0-31.0); Mean Platelet Volume 6.2 fL (7.4-10.4); Platelet Count 493 10x3/uL (130-400); Red Blood Cell (RBC) Count 2.38 mill/uL (4.70-6.10); White Blood Cell (WBC) Count 11.9 10x3/uL (4.8-10.8)
[2022-02-13 04:53] LABS: Anion Gap 12 mmol/L (10-20); BUN (Urea Nitrogen) 13 mg/dL (8.4-25.7); Calc. Creatinine Clearance 56 mL/min (70-130); Calcium 7.6 mg/dL (7.8-10.44); Carbon Dioxide 26 mmol/L (23-31); Chloride 102 mmol/L (98-107); Estimated GFR 80; Glucose 77 mg/dL (83-110); Potassium 3.6 mmol/L (3.5-5.1); Sodium 136 mmol/L (136-145)
[2022-02-13] MEDS: Mometasone 200 MCG/PUFF (1 INHALER) INH SCH ×2 (06:57→21:49)
[2022-02-13] MEDS: Enoxaparin Sodium 40 MG/0.4 ML SYRINGE SC SCH (09:12)
[2022-02-13] MEDS: Ferrous Sulfate 325 MG TAB PO SCH ×2 (09:13→18:07)
[2022-02-13] MEDS: Senokot S 8.6-50 MG TAB PO SCH ×2 (09:13→19:48)
[2022-02-13] MEDS: Cholecalciferol 1,000 UNITS (25 MCG) TAB PO SCH (09:13)
[2022-02-13] MEDS: Sodium Chloride 1 GM TAB PO SCH ×3 (09:13→19:48)
[2022-02-13] MEDS: Carvedilol 3.125 MG TAB PO SCH ×2 (09:13→18:07)
[2022-02-13] MEDS: Lisinopril 10 MG TAB PO SCH (09:13)
[2022-02-13] MEDS: metFORMIN 500 MG TAB PO SCH ×2 (09:13→18:07)
[2022-02-13] MEDS: Atorvastatin Calcium 20 MG TAB PO SCH (19:48)
[2022-02-14] MEDS: CEFAZOLIN 2 GM in Sodium Chloride 0.9% 100 ML IVPB SCH ×3 (00:57→18:14)
[2022-02-14 05:24] LABS: Anion Gap 11 mmol/L (10-20); BUN (Urea Nitrogen) 12 mg/dL (8.4-25.7); Calc. Creatinine Clearance 55 mL/min (70-130); Calcium 7.7 mg/dL (7.8-10.44); Carbon Dioxide 24 mmol/L (23-31); Chloride 102 mmol/L (98-107); Estimated GFR 78; Glucose 91 mg/dL (83-110); Potassium 3.3 mmol/L (3.5-5.1); Sodium 134 mmol/L (136-145)
[2022-02-14] MEDS ORDERED: Potassium Chloride 20 MEQ TAB PO SCH (07:30)
[2022-02-14] MEDS: Mometasone 200 MCG/PUFF (1 INHALER) INH SCH ×2 (08:18→19:47)
[2022-02-14] MEDS: Cholecalciferol 1,000 UNITS (25 MCG) TAB PO SCH (08:40)
[2022-02-14] MEDS: Enoxaparin Sodium 40 MG/0.4 ML SYRINGE SC SCH (08:41)
[2022-02-14] MEDS: Sodium Chloride 1 GM TAB PO SCH ×3 (08:42→20:08)
[2022-02-14] MEDS: Ferrous Sulfate 325 MG TAB PO SCH ×2 (08:42→16:23)
[2022-02-14] MEDS: Lisinopril 10 MG TAB PO SCH (08:42)
[2022-02-14] MEDS: Senokot S 8.6-50 MG TAB PO SCH ×2 (08:43→20:08)
[2022-02-14] MEDS: metFORMIN 500 MG TAB PO SCH ×2 (08:43→16:23)
[2022-02-14] MEDS: Carvedilol 3.125 MG TAB PO SCH ×2 (08:43→16:23)
[2022-02-14] MEDS: HYDROcodone/Acetaminophen 5/325 mg Tablet PO PRN ×2 (08:44→20:07)
[2022-02-14] MEDS: Atorvastatin Calcium 20 MG TAB PO SCH (20:08)
[2022-02-15] MEDS: CEFAZOLIN 2 GM in Sodium Chloride 0.9% 100 ML IVPB SCH ×3 (01:02→16:42)
[2022-02-15] MEDS: HYDROcodone/Acetaminophen 5/325 mg Tablet PO PRN (02:23)
[2022-02-15 05:35] LABS: #Basophils 0.1 thou/uL (0.0-0.2); #Eosinphils 0.1 thou/uL (0.0-0.7); #Lymphocytes 1.8 thou/uL (1.20-3.40); #Neutrophils 9.6 thou/uL (1.40-6.50); %Basophils 0.4 % (0.0-1.0); %Eosinophils 0.8 % (0.0-10.0); %Lymphocytes 14.3 % (21.0-51.0); %Monocytes 8.1 % (0.0-10.0); %Neutrophils 76.4 % (42.0-75.0); Hemoglobin 7.4 g/dL (14.0-18.0); Mean Corpuscular HGB CONC 33.4 g/dL (32.0-36.0); Mean Corpuscular Volume 95.9 fl (78.0-98.0); Mean Platelet Volume 6.2 fL (7.4-10.4); Platelet Count 432 10x3/uL (130-400); RBC Distribution Width 12.7 % (11.5-14.5); Red Blood Cell (RBC) Count 2.32 mill/uL (4.70-6.10); White Blood Cell (WBC) Count 12.5 10x3/uL (4.8-10.8)
[2022-02-15 05:52] LABS: Anion Gap 12 mmol/L (10-20); BUN (Urea Nitrogen) 12 mg/dL (8.4-25.7); Calc. Creatinine Clearance 58 mL/min (70-130); Calcium 7.7 mg/dL (7.8-10.44); Carbon Dioxide 24 mmol/L (23-31); Chloride 101 mmol/L (98-107); Estimated GFR 84; Glucose 79 mg/dL (83-110); Potassium 3.8 mmol/L (3.5-5.1); Sodium 133 mmol/L (136-145)
[2022-02-15] MEDS: Mometasone 200 MCG/PUFF (1 INHALER) INH SCH (07:36)
[2022-02-15 07:55] VITALS: TEMP 97.2
[2022-02-15] MEDS: Cholecalciferol 1,000 UNITS (25 MCG) TAB PO SCH (09:53)
[2022-02-15] MEDS: Carvedilol 3.125 MG TAB PO SCH ×2 (09:53→16:41)
[2022-02-15] MEDS: metFORMIN 500 MG TAB PO SCH ×2 (09:53→16:41)
[2022-02-15] MEDS: Lisinopril 10 MG TAB PO SCH (09:53)
[2022-02-15] MEDS: Ferrous Sulfate 325 MG TAB PO SCH ×2 (09:53→16:41)
[2022-02-15] MEDS: Senokot S 8.6-50 MG TAB PO SCH (09:53)
[2022-02-15] MEDS: Sodium Chloride 1 GM TAB PO SCH ×2 (09:54→16:41)
[2022-02-15] MEDS: Enoxaparin Sodium 40 MG/0.4 ML SYRINGE SC SCH (09:54)
[2022-02-15 09:55] VITALS: BP 152/69
== END 2022-02-15 18:40 | disposition home health service (06) | DRG 871 ==
LOC: ERS 14:33 → ERHOLD 16:05 → 2NO 20:11 → T4-B 02-01 23:08
PROVIDERS: ADMIT Family Medicine; ATTEND Family Medicine
PROC: 3E03329 Introduction of Other Anti-infective into Peripheral Vein, Percutaneous Approach (ICD-10-PCS; principal; 2022-01-30)
PROC: 02HV33Z Insertion of Infusion Device into Superior Vena Cava, Percutaneous Approach (ICD-10-PCS; 2022-02-04)
PROC: B548ZZA Ultrasonography of Superior Vena Cava, Guidance (ICD-10-PCS; 2022-02-04)
DX: A41.01 Sepsis due to Methicillin susceptible Staphylococcus aureus (principal); I21.A1 Myocardial infarction type 2; J96.01 Acute respiratory failure with hypoxia; J15.211 Pneumonia due to Methicillin susceptible Staphylococcus aureus; J10.08 Influenza due to other identified influenza virus with other specified pneumonia; E22.2 Syndrome of inappropriate secretion of antidiuretic hormone; E87.20 Acidosis, unspecified; N17.9 Acute kidney failure, unspecified; Z20.822 Contact with and (suspected) exposure to COVID-19; E78.5 Hyperlipidemia, unspecified; F32.A Depression, unspecified; F17.210 Nicotine dependence, cigarettes, uncomplicated; I12.9 Hypertensive chronic kidney disease with stage 1 through stage 4 chronic kidney disease, or unspecified chronic kidney disease; E11.22 Type 2 diabetes mellitus with diabetic chronic kidney disease; R33.9 Retention of urine, unspecified; N18.30 Chronic kidney disease, stage 3 unspecified; D63.1 Anemia in chronic kidney disease; E83.51 Hypocalcemia; E88.09 Other disorders of plasma-protein metabolism, not elsewhere classified; E11.65 Type 2 diabetes mellitus with hyperglycemia; E87.6 Hypokalemia; H54.8 Legal blindness, as defined in USA; D50.9 Iron deficiency anemia, unspecified; Z98.890 Other specified postprocedural states; Z89.421 Acquired absence of other right toe(s); Z79.84 Long term (current) use of oral hypoglycemic drugs; Z79.4 Long term (current) use of insulin; Z79.899 Other long term (current) drug therapy; Z93.59 Other cystostomy status
CPT/HCPCS: 36415; 36416; 36569; 51702; 71045; 71275; 80048; 80053; 80202; 81003; 81015; 82436; 82550; 82553; 82728; 83540; 83605; 83690; 83735; 83880; 83930; 83935; 84100; 84133; 84145; 84300; 84484; 85014; 85018; 85025; 85046; 85049; 85379; 85652; 86140; 87040; 87077; 87086; 87149; 87186; 87811; 87899; 93005; 93306; 96365; 96366; 96367; 96368; C1751; J0692; J1644; J1650; J1815; J1956; J2185; J3370; J3370-JW; J3490; J7050; Q9967

== ENCOUNTER 2022-03-07 20:45 | Emergency (ER) | payer MEDICARE, MEDICAID ==
[2022-03-07 22:47] LABS: #Basophils 0.1 thou/uL (0.0-0.2); #Eosinphils 0.3 thou/uL (0.0-0.7); #Lymphocytes 2.5 thou/uL (1.20-3.40); #Neutrophils 9.5 thou/uL (1.40-6.50); %Basophils 0.6 % (0.0-1.0); %Eosinophils 2.6 % (0.0-10.0); %Lymphocytes 18.6 % (21.0-51.0); %Monocytes 7.2 % (0.0-10.0); Hemoglobin 8.5 g/dL (14.0-18.0); Mean Corpuscular HGB CONC 33.2 g/dL (32.0-36.0); Mean Corpuscular Hemoglobin 31.9 pg (27.0-31.0); Mean Corpuscular Volume 96.1 fl (78.0-98.0); Mean Platelet Volume 6.5 fL (7.4-10.4); Platelet Count 371 10x3/uL (130-400); RBC Distribution Width 13.2 % (11.5-14.5); Red Blood Cell (RBC) Count 2.67 mill/uL (4.70-6.10); White Blood Cell (WBC) Count 13.4 10x3/uL (4.8-10.8)
[2022-03-07 23:09] LABS: ALT (SGPT) 7 U/L (8-55); AST (SGOT) 14 U/L (5-34); Albumin 2.9 g/dL (3.4-4.8); Alkaline Phosphatase 88 U/L (40-110); Anion Gap 10 mmol/L (10-20); BUN (Urea Nitrogen) 16 mg/dL (8.4-25.7); Bilirubin, Total 0.4 mg/dL (0.2-1.2); Calc. Creatinine Clearance 0 mL/min (70-130); Calcium 8.6 mg/dL (7.8-10.44); Carbon Dioxide 24 mmol/L (23-31); Chloride 98 mmol/L (98-107); Estimated GFR 65; Globulin 3.7 g/dL (2.4-3.5); Glucose 180 mg/dL (83-110); Potassium 4.2 mmol/L (3.5-5.1); Protein, Total 6.6 g/dL (5.8-8.1); Sodium 128 mmol/L (136-145)
[2022-03-07 23:50] LABS: Bacteria/HPF 4+ HPF (None Seen); Bilirubin Negative (Negative); Blood, Urine 3+ (Negative); Clarity Turbid (Clear); Glucose, Urine (Dipstick) 150 mg/dL (Negative); Ketone, Urine Negative (Negative); Leukocyte 500 Leu/uL (Negative); Nitrite Negative (Negative); Protein, Urine (Dipstick) 100 mg/dL (Neg-Trace); RBC/HPF Greater than 50 HPF (0-3); Specific Gravity, Urine 1.013 (1.002-1.036); Squamous Epithelial None Seen HPF (0-3); Urobilinogen Normal mg/dL (Less than 2); WBC/HPF Greater than 50 HPF (0-3)
[2022-03-08] MEDS ORDERED: Levofloxacin 500 mg/D5W 100 ml Premix Bag ONE (00:09)
== END 2022-03-08 02:37 | disposition home or self-care (01) ==
LOC: ERS 20:45
DX: N39.0 Urinary tract infection, site not specified (principal); D64.9 Anemia, unspecified; D72.829 Elevated white blood cell count, unspecified; E11.9 Type 2 diabetes mellitus without complications; I10 Essential (primary) hypertension; E78.5 Hyperlipidemia, unspecified; F17.210 Nicotine dependence, cigarettes, uncomplicated
CPT/HCPCS: 36415; 51705; 74177; 80053; 81003; 81015; 83605; 85025; 87040; 87077; 87086; 87186; 96365; J1956; Q9967